=== PATIENT | female | born 1960 | race Caucasian/White ===

== ENCOUNTER 2016-12-03 09:36 | Emergency (ER) | payer SELFPAY ==
[~2016-12-03] VITALS: Ht 167.6 cm; Wt 69.9 kg
[~2016-12-03 09:36] MED LIST: ACHD5005 PO; ALBU17AE23; AMOX-355; CEPH-507 PO; FAMO-119 PO; FAMO20TA5 PO; HYDR1TAB PO; IBP200T; IBUP-1780 PO; LISI10TA2; MECL12.579 PO; METH4TAB PO; NAPR500T PO; ONDA8TAB13 PO; ONDA8TAB9 PO; PRD20T PO; SULF1TAB35 PO; SULF1TAB38 PO; TRAM50TA2 PO
--- OUTSIDE RECORDS SUMMARY | 2016-12-03 09:43 | XMS REPORT | Continuity of Care Document ---
Author Author [facility] Organization [facility] Address Unknown Phone Unavailable Care Team Providers Care Seed Collector Name Role Phone [facility] OF PCP Insurance Providers Payer Name Policy Number Subscriber Name Relationship Self Pay Anupam Ling 18 Self / Same As Patient Advance Directives Directive Response Recorded Date/Time Advance Directives No 01/27/15 4:50pm Health Care Power of Tire Retreader No 01/27/15 4:50pm Organ Donor No 01/27/15 [...] F (97.6 - 99.5) Temperature (Calculated Celsius) 36.17111 degrees C (36.4 - 37.5) Temperature Source Temporal Pulse Rate (adult) 89 bpm (60 - 90) Respiratory Rate 16 bpm (12 - 24) O2 Sat by Pulse Oximetry 99 % (88 - 100) Blood Pressure 146/89 mm Hg Pain Pain Intensity 0 Height (Feet) 5 feet Height (Inches) 7 inches Height (Calculated Centimeters) 170.699199 cm Weight (Pounds) 160 pounds Weight (Calculated Kilograms) 72.473950 kilograms Calculated BMI 25.06 Results Laboratory Results [...] 5-9 01/27/2015 7:00pm 01/27/2015 7:14pm Urine Specific [place] 1.015 * 1.016-1.022 01/27/2015 7:00pm 2014 7:14pm [...] Encounter Location Date/Time Departed Emergency Room Via [facility] 01/27/15 4:15pm Recent Diagnosis
[2016-12-03] MEDS ORDERED: IBUP-1780 (10:23)
[2016-12-03] MEDS ORDERED: HYDR-3812 PO (10:23)
--- NOTE | 2016-12-03 11:16 | ED Lower Extremity ---
General Chief Complaint: Lower Extremity Stated Complaint: FALL/LEFT KNEE PAIN Nursing Triage Note: C/O left knee pain. Fell on 11/21. Saw primary drDavis next day. Decided no x-ray needed. Bruising and swelling. Nursing Sepsis Screen: No Definite Risk Source: patient Exam Limitations: no limitations History of Present Illness Time seen by provider: 11:14 Initial Comments To ER with left anterior knee pain and bruising about the left lower extremity. States that she tripped over a tree root in her driveway 11/21/16. She saw her primary care health the next day and they decided in agreement that since she was ambulatory imaging studies were not needed. There is no swelling and pain at the time. However, today 2 weeks later she has persistent pain over the tibial tuberosity and ecchymosis around the ankle. No pain at the ankle. Onset: just prior to arrival Severity: moderate Pain/Injury Location: left knee Method of Injury: fell Modifying Factors: Worse With Movement Allergies and Home Medications Allergies Coded Allergies: No Known Drug Allergies (Verified , 10/15/08) Home Medications Hydrocodone/Acetaminophen 1 Each Tablet #28 (Reported) Ibuprofen 800 Mg Tablet #90 (Reported) Constitutional: see HPINo chills, No fever EENTM: see HPI Respiratory: no symptoms reported Cardiovascular: no symptoms reported Genitourinary: no symptoms reported Musculoskeletal: no symptoms reported Skin: no symptoms reported Psychiatric/Neurological: No Symptoms Reported Past Dhnjccq-Brqtkr-Mtpsnx Hx Patient Social History Alcohol Use: Denies Use Recreational Drug Use: No Smoking Status: Never a Smoker 2nd Hand Smoke Exposure: No Recent Foreign Travel: No Contact w/Someone Who Travel: No Recent Infectious Disease Expo: No Recent Hopitalizations: Yes ( PREVIOUSLY STATED) Immunizations Up To Date Tetanus Booster (TDap): More than 5yrs Date of Influenza Vaccine: Jul 17, 2012 Seasonal Allergies Seasonal Allergies: No Surgeries HX Surgeries: Yes (HIATAL HERNIA REPAIR) Surgeries: Abdominal, Tubal Ligation Respiratory Hx Respiratory Disorders: No Cardiovascular Hx Cardiac Disorders: Yes (HX HTN) Cardiac Disorders: Hypertension Neurological Hx Neurological Disorders: No Reproductive System : No Hx Reproductive Disorders: No Sexually Transmitted Disease: No EMD SPECIAL EDUCATION TEACHER History: Menopausal Genitourinary Hx Genitourinary Disorders: No Gastrointestinal Hx Gastrointestinal Disorders: Yes Gastrointestinal Disorders: Gastroesophageal Reflux, Hiatal Hernia Musculoskeletal Hx Musculoskeletal Disorders: Yes Musculoskeletal Disorders: Arthritis Endocrine Hx Endocrine Disorders: No HEENT HX ENT Disorders: No Cancer Hx Cancer: No Psychosocial Hx Psychiatric Problems: No Integumentary HX Skin/Integumentary Disorder: No Blood Transfusions Hx Blood Disorders: No Family Medical History Significant Family History: No Pertinent Family Hx Physical Exam Vital Signs Vital Sign - Last 12Hours 12/03/16 10:08 Temp 99.1 Pulse 76 Resp 18 B/P 151/82 Pulse Ox 99 O2 Delivery Room Air Capillary Refill : Less Than 3 Seconds General Appearance: WD/WN no apparent distress HEENT: PERRL/EOMI normal ENT inspection Neck: non-tender full range of motion Respiratory: no respiratory distress no accessory muscle use Gastrointestinal: normal bowel sounds non tender soft Hips: bilateral hip non-tender, bilateral hip normal inspection, bilateral hip normal range of motion Legs: bilateral leg non-tender, bilateral leg normal inspection, bilateral leg normal range of motion Knees: left knee ecchymosis, left knee soft tissue tenderness, left knee swelling Ankles: left ankle ecchymosis Feet: bilateral foot non-tender, bilateral foot normal inspection, bilateral foot normal range of motion Neurologic/Tendon: normal sensation normal motor functions Neurologic/Psychiatric: alert normal mood/affect oriented x 3 Skin: normal color warm/dry Progress/Results/Core Measures Results/Orders My Orders Orders-CHRISTEL CASANOVA APRN Immobilizer Knee St 19 Inch (12/03/16 11:32) Vital Signs/I&O Vital Sign - Last 12Hours 12/03/16 10:08 Temp 99.1 Pulse 76 Resp 18 B/P 151/82 Pulse Ox 99 O2 Delivery Room Air Blood Pressure Mean: 105 Departure Impression Impression: Primary Impression: Acute internal derangement of left knee Disposition: 01 HOME, SELF-CARE Condition: Stable Departure-Patient Inst. Decision time for Depature: 11:20 Referrals: CIRO MEYER MD [facility] (PCP/Family) Primary Care Physician ANDREW FLOREZ MD,ARNIE WALKER,CHUCK DENISE MD,DERIC Brand MD Patient Instructions: NO INSTRUCTIONS GIVEN Add. Discharge Instructions: 1. knee immobilizer for the next week 2. Call an orthopedist of your choosing for follow up in 2 weeks 3. Ice pack as directed 4. Take 81mg aspirin daily All discharge instructions reviewed with patient and/or family. Voiced understanding. CHRISTEL CASANOVA APRN Dec 03, 2016 11:15 understanding. CHRISTEL CASANOVA APRN Dec 03, 2016 11:15
--- NOTE | 2016-12-03 11:32 | Diagnostic Imaging Report ---
KNEE, LEFT, 3 VIEWS COMPARISON: None available. INDICATION: Left knee pain after fall approximately two weeks ago. Pain not improving. TECHNIQUE: AP, oblique and lateral views of the left knee. FINDINGS: There is no acute or healing fracture. No malalignment. Suprapatellar enthesopathy is present. Joint spaces are well-maintained. No knee joint effusion. IMPRESSION: No acute osseous abnormality about the left knee. Dictated by: Dictated on workstation # [id number]
[2016-12-03 11:58] VITALS: BP 148/80
== END 2016-12-03 11:58 | disposition home or self-care (01) ==
LOC: EDUNIT# 09:36 → ER 09:38
DX: M23.92 Unspecified internal derangement of left knee (principal); I10 Essential (primary) hypertension
CPT/HCPCS: 73562; 99283

== ENCOUNTER 2016-12-09 09:00 | Outpatient (RCR) | payer SELFPAY ==
--- OUTSIDE RECORDS SUMMARY | 2016-11-11 09:52 | XMS REPORT | Continuity of Care Document ---
Author Author [facility] Organization [facility] Address Unknown Phone Unavailable Care Team Providers Care Chief Client Officer Name Role Phone [facility] OF PCP Insurance Providers Payer Name Policy Number Subscriber Name Relationship Self Pay Anupam Ling 18 Self / Same As Patient Advance Directives Directive Response Recorded Date/Time Advance Directives No 01/27/15 4:50pm Health Care Power of Scientific Investigator No 01/27/15 4:50pm Organ Donor No 01/27/15 4:50pm Resuscitation Status Full Code 01/27/15 4:50pm Problems Medical Problems Problem Onset Date Status Diarrhea Unknown Active Nausea and vomiting Unknown Active Diarrhea Unknown Active Medications Medication Dose Route Sig Days/Qty Instructions Order Date Discontinued Date Status Lisinopril 02/08/10 01/27/15 Discontinued Albuterol 02/08/10 12/17/12 Discontinued Meclizine Hcl (Antivert) 1 - 2 Each PO FOUR TIMES DAILY 30 Qty 01/27/15 Discontinued Ondansetron HCl 8 Mg PO EVERY 6 HOURS 10 Qty 12/17/12 12/27/12 Discontinued Acetaminophen/Hydrocodone Bitart 1 - 2 Each PO Q 4 HOURS PRN PAIN 14 Qty 12/27/12 01/27/15 Discontinued Trimethoprim/Sulfamethoxazole 1 Ea PO TWICE A DAY 20 Qty FOR INFECTION 01/27/15 Discontinued Methylprednisolone 0 PO DIRECTED 1 Qty 01/01/13 01/27/15 Discontinued Ondansetron 8 Mg PO EVERY 6 HOURS PRN NAUSEA/VOMITING 10 Qty 01/27/15 Active Famotidine (Pepcid) 1 Each PO TWICE A DAY 30 Qty 01/27/15 Active Social History Social History Problem Response Recorded Date/Time Alcohol Use Denies Use 01/27/2015 4:50pm Recreational Drug Use No 01/27/2015 4:50pm Recent Foreign Travel No 01/27/2015 4:50pm Recent Infectious Disease Exposure No 01/27/2015 4:50pm Hospitalization with Isolation Denies 01/27/2015 4:50pm Sexually Transmitted Disease No 01/27/2015 4:50pm Smoking Status Never a Smoker 01/27/2015 4:50pm Query Response Start Date Stop Date Smoking Status Never a Smoker Hospital Discharge Instructions No hospital discharge instructions. Plan of Care No plan of care. Functional Status No functional status results. Allergies, Adverse Reactions, Alerts Allergen Type Severity Reaction Status Last Updated No Known Drug Allergies Active 10/15/08 Immunizations Name Given Type Date of Influenza Vaccine 07/17/12 Historical Tetanus Booster (TDap) More than 5yrs Historical Vital Signs Acute Vital Signs Vital Response Date/Time Temperature (Fahrenheit) 97.9 degrees F (97.6 - 99.5) Temperature (Calculated Celsius) 36.34810 degrees C (36.4 - 37.5) Temperature Source Temporal Pulse Rate (adult) 89 bpm (60 - 90) Respiratory Rate 16 bpm (12 - 24) O2 Sat by Pulse Oximetry 99 % (88 - 100) Blood Pressure 146/89 mm Hg Pain Pain Intensity 0 Height (Feet) 5 feet Height (Inches) 7 inches Height (Calculated Centimeters) 170.515410 cm Weight (Pounds) 160 pounds Weight (Calculated Kilograms) 72.806197 kilograms Calculated BMI 25.06 Results Laboratory Results Test Name Result Units Flags Reference Collection Date/Time Result Date/ Time Comments White Blood Count 5.7 10^3/uL 4.3-11.0 01/27/2015 5:56pm 01/27/2015 6: 08pm Red Blood Count 4.89 10^6/uL 4.35-5.85 01/27/2015 5:56pm 01/27/2015 6: 08pm Hemoglobin 14.8 G/DL 11.5-16.0 01/27/2015 5:56pm 01/27/2015 6:08pm Hematocrit 45 % 35-52 01/27/2015 5:56pm 01/27/2015 6:08pm Mean Corpuscular Volume 92 FL 80-99 01/27/2015 5:56pm 01/27/2015 6: 08pm Mean Corpuscular Hemoglobin 30 PG 25-34 01/27/2015 5:56pm 01/27/2015 6: 08pm Mean Corpuscular Hemoglobin Concent 33 G/DL 32-36 01/27/2015 5:56pm 6:08pm Red Cell Distribution Width 13.2 % 10.0-14.5 01/27/2015 5:pm 2014 6:08pm Platelet Count 198 10^3/uL 130-400 01/27/2015 5:56pm 01/27/2015 6:08pm Mean Platelet Volume 10.7 FL H 7.4-10.4 01/27/2015 5:pm 01/27/2015 6: 08pm Neutrophils (%) (Auto) 90 % H 42-75 01/27/2015 5:56pm 01/27/2015 6:08pm Lymphocytes (%) (Auto) 5 % L 12-44 01/27/2015 5:pm 01/27/2015 6:08pm Monocytes (%) (Auto) 4 % 0-12 01/27/2015 5:pm 01/27/2015 6:08pm Eosinophils (%) (Auto) 0 % 0-10 01/27/2015 5:pm 01/27/2015 6:08pm Basophils (%) (Auto) 0 % 0-10 01/27/2015 5:pm 01/27/2015 6:08pm Neutrophils # (Auto) 5.2 X 10^3 1.8-7.8 01/27/2015 5:pm 01/27/2015 6: 08pm Lymphocytes # (Auto) 0.3 X 10^3 L 1.0-4.0 01/27/2015 5:pm 01/27/2015 6: 08pm Monocytes # (Auto) 0.2 X 10^3 0.0-1.0 01/27/2015 5:56pm 01/27/2015 6: 08pm Eosinophils # (Auto) 0.0 10^3/uL 0.0-0.3 01/27/2015 5:56pm 01/27/2015 6 :08pm Basophils # (Auto) 0.0 10^3/uL 0.0-0.1 01/27/2015 5:56pm 01/27/2015 6: 08pm Neutrophils % (Manual) 80 % 01/27/2015 5:56pm 01/27/2015 6:26pm Band Neutrophils 11 % 01/27/2015 5:56pm 01/27/2015 6:26pm Lymphocytes % (Manual) 3 % 01/27/2015 5:56pm 01/27/2015 6:26pm Monocytes % (Manual) 3 % 01/27/2015 5:56pm 01/27/2015 6:26pm Eosinophils % (Manual) 1 % 01/27/2015 5:56pm 01/27/2015 6:26pm Basophils % (Manual) 0 % 01/27/2015 5:56pm 01/27/2015 6:26pm Atypical Lymphocytes 2 % 01/27/2015 5:56pm 01/27/2015 6:26pm Blood Morphology Comment NORMAL 01/27/2015 5:56pm 01/27/2015 6: 26pm Urine Color YELLOW 01/27/2015 7:00pm 01/27/2015 7:14pm Urine Clarity CLEAR 01/27/2015 7:00pm 01/27/2015 7:14pm Urine pH 6 5-9 01/27/2015 7:00pm 01/27/2015 7:14pm Urine Specific [place] 1.015 * 1.016-1.022 01/27/2015 7:00pm 2014 7:14pm Urine Protein 1+ * NEGATIVE 01/27/2015 7:00pm 01/27/2015 7:14pm Urine Glucose (UA) NEGATIVE NEGATIVE 01/27/2015 7:00pm 01/27/2015 7: 14pm Urine RBC (Auto) 1+ * NEGATIVE 01/27/2015 7:00pm 01/27/2015 7:14pm Urine Ketones 2+ * NEGATIVE 01/27/2015 7:00pm 01/27/2015 7:14pm Urine Nitrite NEGATIVE NEGATIVE 01/27/2015 7:00pm 01/27/2015 7:14pm Urine Bilirubin NEGATIVE NEGATIVE 01/27/2015 7:00pm 01/27/2015 7: 14pm Urine Urobilinogen NORMAL MG/DL NORMAL 01/27/2015 7:00pm 01/27/2015 7: 14pm Urine Leukocyte Esterase 1+ * NEGATIVE 01/27/2015 7:00pm 01/27/2015 7: 14pm Urine RBC 0-2 /HPF 01/27/2015 7:00pm 01/27/2015 7:14pm Urine WBC 2-5 /HPF 01/27/2015 7:00pm 01/27/2015 7:14pm Urine Bacteria TRACE /HPF 01/27/2015 7:00pm 01/27/2015 7:14pm Urine Squamous Epithelial Cells 10-25 /HPF * 01/27/2015 7:00pm 2014 7:14pm Urine Crystals NONE /LPF 01/27/2015 7:00pm 01/27/2015 7:14pm Urine Casts NONE /LPF 01/27/2015 7:00pm 01/27/2015 7:14pm Urine Mucus NEGATIVE /LPF 01/27/2015 7:00pm 01/27/2015 7:14pm Urine Culture Indicated NO 01/27/2015 7:00pm 01/27/2015 7:14pm Sodium Level 138 MMOL/L 135-145 01/27/2015 5:5601/27/2015 6:28pm Potassium Level 3.8 MMOL/L 3.6-5.0 01/27/2015 5:5601/27/2015 6:28pm Chloride Level 106 MMOL/L 98-107 01/27/2015 5:5601/27/2015 6:28pm Carbon Dioxide Level 22 MMOL/L 21-32 01/27/2015 5:5601/27/2015 6: 28pm Blood Urea Nitrogen 9 MG/DL 7-18 01/27/2015 5:5601/27/2015 6:28pm Creatinine 0.82 MG/DL 0.60-1.30 01/27/2015 5:5601/27/2015 6:28pm BUN/Creatinine Ratio 11 01/27/2015 5:5601/27/2015 6:28pm Estimat Glomerular Filtration Rate > 60 01/27/2015 5:562014 6:28pm GFR INTERPRETIVE DATA UNITS FOR ESTIMATED GFR (eGFR): mL/min/1.73 M2 REFERENCE RANGE FOR ESTIMATED GFR (eGFR) eGFR NORMAL eGFR >60 MODERATELY DECREASED eGFR 30-59 SEVERLY DECREASED eGFR 15-29 KIDNEY FAILURE <15 (OR DIALYSIS) Glucose Level 121 MG/DL H 70-105 01/27/2015 5:01/27/2015 6:28pm Calcium Level 9.3 MG/DL 8.5-10.1 01/27/2015 5:01/27/2015 6:28pm Total Bilirubin 1.5 MG/DL H 0.1-1.0 01/27/2015 5:01/27/2015 6:28pm Alkaline Phosphatase 114 U/L 40-136 01/27/2015 5:pm 01/27/2015 6: 28pm Aspartate Amino Transf (AST/SGOT) 15 U/L 5-34 01/27/2015 5:2014 6:28pm Alanine Aminotransferase (ALT/SGPT) < 6 U/L 0-55 01/27/2015 5: 6:28pm Total Protein 7.1 G/DL 6.4-8.2 01/27/2015 5:01/27/2015 6:28pm Albumin 3.9 G/DL 3.2-4.5 01/27/2015 5:01/27/2015 6:28pm Lipase 14 U/L 8-78 01/27/2015 5:pm 01/27/2015 6:28pm Procedures No known history of procedures. Encounters Encounter Location Date/Time Departed Emergency Room Via [facility] 01/27/15 4:15pm Recent Diagnosis
[~2016-12-09 09:00] MED LIST changes: +HYDR-3812 PO; +IBUP-1780
[2016-12-22] MEDS ORDERED: METH4TAB PO (11:08)
== END 2016-12-29 14:47 | disposition home or self-care (01) ==
PROVIDERS: ATTEND Nurse Practitioner Community Health
DX: M25.561 Pain in right knee (principal)

== ENCOUNTER 2016-12-22 09:49 | Emergency (ER) | payer SELFPAY ==
[~2016-12-22] VITALS: Ht 170.2 cm; Wt 65.8 kg
--- OUTSIDE RECORDS SUMMARY | 2016-12-22 09:56 | XMS REPORT | Continuity of Care Document ---
Author Author [facility] Organization [facility] Address Unknown Phone Unavailable Care Team Providers Care Mri Tech Name Role Phone [facility] OF PCP Insurance Providers Payer Name Policy Number Subscriber Name Relationship Self Pay Anupam Ling 18 Self / Same As Patient Advance Directives Directive Response Recorded Date/Time Advance Directives No 01/27/15 4:50pm Health Care Power of Recreational Vehicle Resort Manager No 01/27/15 4:50pm Organ Donor No 01/27/15 [...] F (97.6 - 99.5) Temperature (Calculated Celsius) 36.64464 degrees C (36.4 - 37.5) Temperature Source Temporal Pulse Rate (adult) 89 bpm (60 - 90) Respiratory Rate 16 bpm (12 - 24) O2 Sat by Pulse Oximetry 99 % (88 - 100) Blood Pressure 146/89 mm Hg Pain Pain Intensity 0 Height (Feet) 5 feet Height (Inches) 7 inches Height (Calculated Centimeters) 170.390949 cm Weight (Pounds) 160 pounds Weight (Calculated Kilograms) 72.022076 kilograms Calculated BMI 25.06 Results Laboratory Results [...] 5-9 01/27/2015 7:00pm 01/27/2015 7:14pm Urine Specific [place] 1.015 * 1.016-1.022 01/27/2015 7:00pm 2014 7:14pm [...] Encounter Location Date/Time Departed Emergency Room Via [facility] 01/27/15 4:15pm Recent Diagnosis
--- NOTE | 2016-12-22 10:27 | ED Hip Pain/Injury ---
General Chief Complaint: Hip/Pelvic Problems Stated Complaint: RIGHT HIP/LEG PAIN Nursing Triage Note: PT CO OF R HIP, PELVIC PAIN INTO BUTTOCKS Source: patient History of Present Illness Time seen by provider: 10:10 Initial Comments PT ARRIVES VIA POV FROM HOME--DROVE SELF HERE C/O PAIN TO RIGHT GROIN, HIP AND BUTTOCK AREA SINCE YESTERDAY NO RECENT INJURY--FELL APPROXIMATELY A MONTH AGO AND INJURED LEFT KNEE, BUT HAS NOT HAD ANY FURTHER PROBLEMS WITH LEFT KNEE NO PRIOR PROBLEMS WITH RIGHT HIP BUT STATES SHE "HAS ARTHRITIS ALL OVER" NO PARESTHESIAS OR MOTOR DEFICITS NO PROBLEMS WITH BOWEL OR BLADDER FUNCTION PAIN IS WORST WITH WALKING TAKES HYDROCODONE AT BEDTIME AND IBUPROFEN DURING THE DAY FOR CHRONIC GENERALIZED PAIN, BUT HAS NOT TAKEN ANYTHING FOR PAIN TODAY. Other PCP: [facility] METER READER INSPECTOR BILLIE CERVANTES Allergies and Home Medications Allergies Coded Allergies: No Known Drug Allergies (Verified , 10/15/08) Home Medications Hydrocodone/Acetaminophen 1 Each Tablet #28 (Reported) Ibuprofen 800 Mg Tablet #90 (Reported) Methylprednisolone 4 Mg Tab.ds.pk #1 4 MG PO UD Prescribed by: MARYLIN BROCK on 12/22/16 1108 Constitutional: no symptoms reported Respiratory: no symptoms reported Cardiovascular: no symptoms reported Genitourinary: no symptoms reported Musculoskeletal: see HPI Skin: no symptoms reported Psychiatric/Neurological: No Symptoms Reported Past Oacbpmg-Fmqesd-Xmlqtf Hx Patient Social History Alcohol Use: Denies Use Recreational Drug Use: No Smoking Status: Never a Smoker 2nd Hand Smoke Exposure: No Recent Foreign Travel: No Contact w/Someone Who Travel: No Recent Infectious Disease Expo: No Recent Hopitalizations: Yes ( PREVIOUSLY STATED) Immunizations Up To Date Tetanus Booster (TDap): More than 5yrs Date of Influenza Vaccine: Jul 17, 2012 Seasonal Allergies Seasonal Allergies: No Surgeries HX Surgeries: Yes (HIATAL HERNIA REPAIR) Surgeries: Abdominal, Tubal Ligation Respiratory Hx Respiratory Disorders: No Cardiovascular Hx Cardiac Disorders: Yes (HX HTN) Cardiac Disorders: Hypertension Neurological Hx Neurological Disorders: No Reproductive System Hx Reproductive Disorders: No Sexually 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, Menopausal Genitourinary Hx Genitourinary Disorders: No Gastrointestinal Hx Gastrointestinal Disorders: Yes Gastrointestinal Disorders: Gastroesophageal Reflux, Hiatal Hernia Musculoskeletal Hx Musculoskeletal Disorders: Yes Musculoskeletal Disorders: Arthritis, Scoliosis Endocrine Hx Endocrine Disorders: No HEENT HX ENT Disorders: No Cancer Hx Cancer: No Psychosocial Hx Psychiatric Problems: No Integumentary HX Skin/Integumentary Disorder: No Blood Transfusions Hx Blood Disorders: No Family Medical History Significant Family History: No Pertinent Family Hx Physical Exam Vital Signs Vital Sign - Last 12Hours 12/22/16 10:05 Temp 98.2 Pulse 91 Resp 18 B/P 154/87 Pulse Ox 98 Capillary Refill : Less Than 3 Seconds General Appearance: No Apparent Distress WD/WN Neck: Full Range of Motion Normal Inspection Non Tender Supple Cardiovascular: Regular Rate, Rhythm No Edema No Murmur Normal Peripheral Pulses Respiratory: Normal Breath Sounds No Accessory Muscle Use No Respiratory Distress Gastrointestinal: Non Tender Soft Back: Normal Inspection No CVA Tenderness No Vertebral Tenderness Extremity: Normal Capillary Refill Normal Range of Motion No Calf Tenderness No Pedal Edema Other (TENDERNESS TO RIGHT GROIN, HIP AND BUTTOCK. HAS NEAR-FULL ROM BUT LIMITED BY PAIN. MOTOR/SENSORY / VASCULAR INTACT. NEGATIVE STRAIGHT LEG RAISING BIALTERALLY) Neurologic/Psychiatric: Alert Oriented x3 No Motor/Sensory Deficits Normal Mood/Affect half backer II-XII Norm as Tested Skin: Normal Color Warm/DryNo Rash Progress/Results/Core Measures Results/Orders My Orders Orders-DELMYMARYLIN K DO Pelvis (12/22/16 10:18) Hip, Right, 2 Views (12/22/16 10:18) Walker (12/22/16 11:08) Methylprednisolone Sod Succ (Solu-Medrol (12/22/16 11:15) Vital Signs/I&O Vital Sign - Last 12Hours 12/22/16 12/22/16 10:05 11:19 Temp 98.2 98.2 Pulse 91 91 Resp 18 18 B/P 154/87 Pulse Ox 98 98 Blood Pressure Mean: 109 Diagnostic Imaging Comments XRAYS PELVIS AND RIGHT HIP--MODERATE OA, OTHERWISE NO ACUTE PROCESS--PER RADIOLOGIST REPORT @ 1104 Reviewed: Reviewed by Me Departure Impression Impression: Primary Impression: Right hip pain Disposition: 01 HOME, SELF-CARE Condition: Improved Departure-Patient Inst. Referrals: [facility] (PCP/Family) Primary Care Physician Patient Instructions: Going Up and Down Curbs or Stairs With a Walker or Crutches, Hip Pain (DC), Hip Pain in Older People Add. Discharge Instructions: ALTERNATE ICE AND HEAT TO AREA AT 20 MINUTE INTERVALS TAKE YOUR HYDROCODONE EVERY 4-6 HOURS HOLD IBUPROFEN WHILE TAKING PREDNISONE FOLLOW UP WITH [facility] THIS WEEK FOR FURTHER CARE All discharge instructions reviewed with patient and/or family. Voiced understanding. Scripts Methylprednisolone (Medrol)4 Mg Tab.ds.pk4 Mg PO UD #1 PKG Prov:MARYLIN BROCK DO 12/22/16 Work/School Note: Work Release Form Date Seen in the Emergency Department: Dec 22, 2016 Return to Work: Dec 27, 2016 MARYLIN BROCK DO Dec 22, 2016 10:27
--- NOTE | 2016-12-22 10:41 | Diagnostic Imaging Report ---
INDICATION: Right hip pain. COMPARISON: Dedicated right hip exam from same day FINDINGS: A single AP view of the pelvis was performed. There is no radiographic evidence of acute fracture or dislocation. Pubic symphysis is within normal limits. SI joints are symmetric. Proximal femurs are intact, bilaterally. The femoro-acetabular joint spaces appear maintained on this single frontal view. Remainder of the bony pelvis is intact as well. No unexpected radiopaque foreign bodies are seen. Included small bowel loops are nondistended. Moderate degenerative changes of the bilateral hips are noted. IMPRESSION: 1. No radiographic evidence of acute fracture or dislocation of the bony pelvis. Dictated by: Dictated on workstation # [id number]
--- NOTE | 2016-12-22 10:43 | Diagnostic Imaging Report ---
INDICATION: Right hip pain. COMPARISON: None. FINDINGS: 2 views of the right hip show no fractures, dislocations, or other acute bony abnormalities identified. Moderate degenerative changes are noted. Otherwise, joint spaces are intact. The soft tissues appear unremarkable. No radiopaque foreign bodies are identified. IMPRESSION: 1. No evidence of acute fracture or dislocation right hip. 2. Moderate osteoarthritis of the right hip. Dictated by: Dictated on workstation # [id number]
[2016-12-22] MEDS ORDERED: METH4TAB PO (11:08)
[2016-12-22] MEDS ORDERED: methylPREDNISolone 125 MG (Solu-MEDROL) VIAL IM ONE (11:15)
[2016-12-22 11:19] VITALS: BP 154/87
== END 2016-12-22 11:20 | disposition home or self-care (01) ==
LOC: EDUNIT# 09:49 → ER 09:51
DX: M16.11 Unilateral primary osteoarthritis, right hip (principal); I10 Essential (primary) hypertension
CPT/HCPCS: 72170; 73502; 96372; 99283

== ENCOUNTER 2017-01-29 01:47 | Emergency (ER) | payer SELFPAY ==
[~2017-01-29] VITALS: Ht 170.2 cm; Wt 63.5 kg
--- NOTE | 2017-01-29 02:59 | ED EENT ---
History of Present Illness General Chief Complaint: Ear Problems Stated Complaint: BUG IN RT EAR Nursing Triage Note: Pt reports she was asleep when a bug flew in her R ear. Pt reports she is unsure if bug came out of ear or not. Pt now c/o pressure to R ear. Source: patient Exam Limitations: no limitations History of Present Illness Time seen by provider: 02:30 Initial Comments Here with report of feeling like something flew into her right ear. She feels pressure to the right ear currently. She swatted at the bug but does not feel like it came out. Denies other concerns. Timing/Duration: abrupt Location: ear (R) Prearrival Treatment: no prearrival treatment Associated Symptoms: No ear drainage, No facial pain/swelling, No fever Allergies and Home Medications Allergies Coded Allergies: No Known Drug Allergies (Verified , 10/15/08) Home Medications Hydrocodone/Acetaminophen 1 Each Tablet, 1 TAB PO HS, #28 (Reported) Review of Systems Constitutional: see HPI, No chills, No fever Ears: See HPI, Pain, Denies Purulent Discharge Respiratory: no symptoms reported Cardiovascular: no symptoms reported Past Cfzlfwd-Hzmrim-Cszapz Hx Patient Social History Alcohol Use: Denies Use Recreational Drug Use: No Smoking Status: Never a Smoker 2nd Hand Smoke Exposure: No Recent Foreign Travel: No Contact w/Someone Who Travel: No Recent Infectious Disease Expo: No Recent Hopitalizations: No ( PREVIOUSLY STATED) Immunizations Up To Date Tetanus Booster (TDap): More than 5yrs Date of Influenza Vaccine: Jul 17, 2012 Seasonal Allergies Seasonal Allergies: No Surgeries HX Surgeries: Yes (HIATAL HERNIA REPAIR) Surgeries: Abdominal, Tubal Ligation Respiratory Hx Respiratory Disorders: No Cardiovascular Hx Cardiac Disorders: Yes Cardiac Disorders: Hypertension Neurological Hx Neurological Disorders: No Reproductive System Hx Reproductive Disorders: No Sexually 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, Menopausal Genitourinary Hx Genitourinary Disorders: No Gastrointestinal Hx Gastrointestinal Disorders: Yes Gastrointestinal Disorders: Gastroesophageal Reflux, Hiatal Hernia Musculoskeletal Hx Musculoskeletal Disorders: Yes Musculoskeletal Disorders: Arthritis, Scoliosis Endocrine Hx Endocrine Disorders: No HEENT HX ENT Disorders: No Cancer Hx Cancer: No Psychosocial Hx Psychiatric Problems: No Integumentary HX Skin/Integumentary Disorder: No Blood Transfusions Hx Blood Disorders: No Reviewed Nursing Assessment Reviewed/Agree w Nursing PMH: Yes Family Medical History Significant Family History: No Pertinent Family Hx Physical Exam Vital Signs Vital Sign - Last 12Hours 01/29/17 02:19 Temp 97.8 Pulse 75 Resp 18 B/P (MAP) 171/94 Pulse Ox 99 O2 Delivery Room Air General Appearance: WD/WN, no apparent distress Ears: right ear other (moderate cerumen interfering with exam of TM.), left ear TM normal, bilateral ear auricle normal, bilateral ear canal normal Cardiovascular: regular rate, rhythm, no murmur Respiratory: lungs clear, normal breath sounds Neurologic/Psychiatric: alert, oriented x 3 Progress/Results/Core Measures Results/Orders Vital Signs/I&O Vital Sign - Last 12Hours 01/29/17 02:19 Temp 97.8 Pulse 75 Resp 18 B/P (MAP) 171/94 Pulse Ox 99 O2 Delivery Room Air Blood Pressure Mean: 119 Progress Note : Progress Note Seen and evaluated. Right ear canal flushed with copious amounts of warm water and hydrogen peroxide 50/50 mix. Large cerumen ball removed with flush. Small amount of cerumen removed with ear pick. No remaining foreign body or cerumen left in canal and patient states she feels much better. Discharged home with return precautions. Patient verbalize understanding instructions and agreement with plan. Departure Impression Impression: Primary Impression: Foreign body in ear Qualified Codes: T16.1XXA - Foreign body in right ear, initial encounter Additional Impression: Impacted cerumen Qualified Codes: H61.21 - Impacted cerumen, right ear Disposition: 01 HOME, SELF-CARE Condition: Improved Departure-Patient Inst. Referrals: [facility] (PCP/Family) Primary Care Physician Patient Instructions: Ear Wax Impaction (DC) Add. Discharge Instructions: All discharge instructions reviewed with patient and/or family. Voiced understanding. You may take ibuprofen or Tylenol as needed for pain. Follow-up with your DrDavis in a few days for recheck. Return for worse pain, swelling, bleeding or discharge from the ear or other concerns as needed. TYRON BISWAS MD Jan 29, 2017 02:59
[2017-01-29 03:11] VITALS: BP 171/94
== END 2017-01-29 03:11 | disposition home or self-care (01) ==
LOC: EDUNIT# 01:47 → ER 01:50
DX: T16.1XXA Foreign body in right ear, initial encounter (principal); H61.21 Impacted cerumen, right ear; I10 Essential (primary) hypertension
CPT/HCPCS: 99282

== ENCOUNTER 2017-10-19 21:08 | Emergency (ER) | payer SELFPAY ==
[~2017-10-19] VITALS: Ht 167.6 cm; Wt 65.8 kg
[~2017-10-19 21:08] MED LIST changes: -HYDR-3812 PO; +NAPR-1071 PO; -NAPR500T PO
--- OUTSIDE RECORDS SUMMARY | 2017-10-19 21:14 | XMS REPORT ---
Author Author BILLIE CERVANTES [facility] Address [address] [place] [address] Care Team Providers Care Managed Services Consultant Name Role Phone BILLIE CERVANTES Unavailable PROBLEMS Type Condition ICD9-CM Code [id number] Code Onset Dates Condition Status SNOMED Code Problem Pain in soft tissues of limb 729.5 Active 10122238 Problem Osteoarthritis, hip, bilateral M16.0 Active 766468554 Problem Intestinal infection due to other organism, NEC 008.8 Active 29650541 Problem Sciatica of right side M54.31 Active 87333575 Problem Osteoarthritis of both knees, unspecified osteoarthritis type M17.0 Active 431330780 Problem Other chronic pain G89.29 Active 99620384 Problem Breast cancer screening Z12.39 Active 985171964 Problem Scoliosis, unspecified scoliosis type, unspecified spinal region M41.9 Active 170599899 Problem Arthralgia, unspecified joint M25.50 Active 24151836 Problem 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 Active 01615712 Problem Special screening for malignant neoplasms, colon V76.51 Active 262517890 Problem Other specified counseling V65.49 Active 987495344 Problem Special screening examination, human papillomavirus [HPV] V73.81 Active 476768628 Problem Screening for malignant neoplasm of the cervix V76.2 Active 286883303 Problem Routine gynecological examination V72.31 Active 269780112653630 Problem Unspecified breast screening V76.10 Active 918117336 Problem Health examination of defined subpopulation V70.5 Active 760138092 ALLERGIES No Information SOCIAL HISTORY Never Assessed PLAN OF CARE VITAL SIGNS MEDICATIONS No Known Medications RESULTS No Results PROCEDURES No Known procedures IMMUNIZATIONS No Known Immunizations MEDICAL (GENERAL) HISTORY Type Description Date Medical History scoliosis Surgical History hernia repair 2007 Hospitalization History childbirth x 3
--- OUTSIDE RECORDS SUMMARY | 2017-10-19 21:14 | XMS REPORT ---
Author Author BILLIE CERVANTES [facility] Address [address] [place] [address] Care Team Providers Care Vp Director Of Creative Strategy Name Role Phone BILLIE CERVANTES Unavailable PROBLEMS Type Condition ICD9-CM Code [id number] Code Onset Dates Condition Status SNOMED Code Problem Pain in soft tissues of limb 729.5 Active 51185606 Problem Osteoarthritis, hip, bilateral M16.0 Active 381403480 Problem Intestinal infection due to other organism, NEC 008.8 Active 76607012 Problem Sciatica of right side M54.31 Active 97336599 Problem Osteoarthritis of both knees, unspecified osteoarthritis type M17.0 Active 754727883 Problem Other chronic pain G89.29 Active 59367679 Problem Breast cancer screening Z12.39 Active 280918866 Problem Scoliosis, unspecified scoliosis type, unspecified spinal region M41.9 Active 439721594 Problem Arthralgia, unspecified joint M25.50 Active 82740497 Problem 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 Active 57251099 Problem Special screening for malignant neoplasms, colon V76.51 Active 163162896 Problem Other specified counseling V65.49 Active 263976176 Problem Special screening examination, human papillomavirus [HPV] V73.81 Active 450793002 Problem Screening for malignant neoplasm of the cervix V76.2 Active 913798063 Problem Routine gynecological examination V72.31 Active 162258840577205 Problem Unspecified breast screening V76.10 Active 639198093 Problem Health examination of defined subpopulation V70.5 Active 420035349 ALLERGIES Unknown Allergies SOCIAL HISTORY No smoking Hx information available PLAN OF CARE VITAL SIGNS MEDICATIONS Unknown Medications RESULTS No Results PROCEDURES No Known procedures IMMUNIZATIONS No Known Immunizations
--- OUTSIDE RECORDS SUMMARY | 2017-10-19 21:14 | XMS REPORT ---
Author Author BILLIE CERVANTES [facility] Address [address] [place] [address] Care Team Providers Care Healthcare Technician Name Role Phone BILLIE CERVANTES Unavailable PROBLEMS Type Condition ICD9-CM Code [id number]-LH Code Onset Dates Condition Status SNOMED Code Problem Screening for malignant neoplasm of the cervix V76.2 Active 273132463 Problem Osteoarthritis, hip, bilateral M16.0 Active 390160553 Problem Intestinal infection due to other organism, NEC 008.8 Active 81540203 Problem Sciatica of right side M54.31 Active 32138358 Problem Osteoarthritis of both knees, unspecified osteoarthritis type M17.0 Active 471962352 Problem Arthralgia, unspecified joint M25.50 Active 73877327 Problem Breast cancer screening Z12.39 Active 168843984 Problem Scoliosis, unspecified scoliosis type, unspecified spinal region M41.9 Active 733636183 Problem Other chronic pain G89.29 Active 88584351 Problem Health examination of defined subpopulation V70.5 Active 888767754 Problem Pain in soft tissues of limb 729.5 Active 37602830 Problem Routine gynecological examination V72.31 Active 842359017962604 Problem Special screening for malignant neoplasms, colon V76.51 Active 588208172 Problem Special screening examination, human papillomavirus [HPV] V73.81 Active 794786656 Problem Other specified counseling V65.49 Active 586404309 Problem Unspecified breast screening V76.10 Active 628500274 Problem 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 Active 39578689 ALLERGIES Unknown Allergies SOCIAL HISTORY No smoking Hx information available PLAN OF CARE VITAL SIGNS MEDICATIONS Unknown Medications RESULTS Name Result Date Reference Range LIPID PANEL 2016-10-11 Cholesterol, Total 204 100-199 Triglycerides 143 0-149 HDL Cholesterol 66 >39 VLDL Cholesterol [place] 29 5-40 LDL Cholesterol Calc 109 0-99 Comment: CMP 2016-10-11 Glucose, Serum 73 65-99 BUN 15 6-24 Creatinine, Serum 0.89 0.57-1.00 eGFR If NonAfricn Am 73 >59 eGFR If Africn Am 84 >59 BUN/Creatinine Ratio 17 9-23 Sodium, Serum 144 134-144 Potassium, Serum 3.9 3.5-5.2 Chloride, Serum 105 96-106 Carbon Dioxide, Total 24 18-29 Calcium, Serum 8.7 8.7-10.2 Protein, Total, Serum 5.7 6.0-8.5 Albumin, Serum 3.5 3.5-5.5 Globulin, Total 2.2 1.5-4.5 A/G Ratio 1.6 1.1-2.5 Bilirubin, Total 0.2 0.0-1.2 Alkaline Phosphatase, S 107 39-117 AST (SGOT) 14 0-40 ALT (SGPT) 6 0-32 PROCEDURES Procedure Date Ordered Related Diagnosis Body Site LIPID PANEL Oct 11, 2016 COMPREHEN METABOLIC PANEL Oct 11, 2016 VENIPUNCT, ROUTINE* Oct 11, 2016 IMMUNIZATIONS No Known Immunizations
--- OUTSIDE RECORDS SUMMARY | 2017-10-19 21:15 | XMS REPORT ---
Author Author BILLIE CERVANTES [facility] Address [address] [place] [address] Care Team Providers Care Education Administrator Name Role Phone BILLIE CERVANTES Unavailable PROBLEMS Type Condition ICD9-CM Code [id number] Code Onset Dates Condition Status SNOMED Code Problem Pain in soft tissues of limb 729.5 Active 56034884 Problem Osteoarthritis, hip, bilateral M16.0 Active 499467667 Problem Intestinal infection due to other organism, NEC 008.8 Active 91342615 Problem Sciatica of right side M54.31 Active 40372910 Problem Osteoarthritis of both knees, unspecified osteoarthritis type M17.0 Active 690987066 Problem Other chronic pain G89.29 Active 84417285 Problem Breast cancer screening Z12.39 Active 737702517 Problem Scoliosis, unspecified scoliosis type, unspecified spinal region M41.9 Active 975810252 Problem Arthralgia, unspecified joint M25.50 Active 62217234 Problem 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 Active 31708058 Problem Special screening for malignant neoplasms, colon V76.51 Active 736096584 Problem Other specified counseling V65.49 Active 119545777 Problem Special screening examination, human papillomavirus [HPV] V73.81 Active 189319802 Problem Screening for malignant neoplasm of the cervix V76.2 Active 973523203 Problem Routine gynecological examination V72.31 Active 384890515157687 Problem Unspecified breast screening V76.10 Active 445767779 Problem Health examination of defined subpopulation V70.5 Active 411780991 ALLERGIES Substance Reaction Event Type Date Status Tramadol HCl feels wierd Drug Allergy Oct, Active Indomethacin hives Drug Allergy Oct, Active SOCIAL HISTORY No smoking Hx information available PLAN OF CARE Activity Details Follow Up 2 Months Reason:knee pain VITAL SIGNS Height 67 in 2016-11-04 Weight 152 lbs 2016-11-04 Temperature 97.8 degrees Fahrenheit 2016-11-04 Heart Rate 72 bpm 2016-11-04 Respiratory Rate 18 2016-11-04 BMI 23.80 kg/m2 2016-11-04 Blood pressure systolic 130 mmHg 2016-11-04 Blood pressure diastolic 78 mmHg 2016-11-04 MEDICATIONS Medication Instructions Dosage Frequency Start Date End Date Duration Status Hydrocodone-Acetaminophen 5-325 MG Orally Once a day at bedtime 1 tablet as needed Sep, Active Ibuprofen 800 MG Orally Three times a day 1 tablet 8h Oct,Dec 30 day(s) Active RESULTS Name Result Date Reference Range AMERITOX 2016-11-04 Xray : Hip, Right 2 views (IN HOUSE) 2016-11-04 PROCEDURES Procedure Date Ordered Related Diagnosis Body Site No Charge Nov 04, 2016 X-RAY EXAM HIP UNI 2-3 VIEWS Nov 04, 2016 Office Visit, Est Pt., Level 3 Nov 04, 2016 IMMUNIZATIONS No Known Immunizations
--- OUTSIDE RECORDS SUMMARY | 2017-10-19 21:15 | XMS REPORT ---
Author Author BILLIE CERVANTES [facility] Address [address] [place] [address] Care Team Providers Care Extension Service Advisor Name Role Phone BILLIE CERVANTES Unavailable PROBLEMS Type Condition ICD9-CM Code [id number] Code Onset Dates Condition Status SNOMED Code Problem Screening for malignant neoplasm of the cervix V76.2 Active 534009036 Problem Osteoarthritis, hip, bilateral M16.0 Active 127402528 Problem Intestinal infection due to other organism, NEC 008.8 Active 94031553 Problem Sciatica of right side M54.31 Active 62729834 Problem Osteoarthritis of both knees, unspecified osteoarthritis type M17.0 Active 695470456 Problem Arthralgia, unspecified joint M25.50 Active 26084602 Problem Breast cancer screening Z12.39 Active 408637320 Problem Scoliosis, unspecified scoliosis type, unspecified spinal region M41.9 Active 476351204 Problem Other chronic pain G89.29 Active 30187880 Problem Health examination of defined subpopulation V70.5 Active 003681733 Problem Pain in soft tissues of limb 729.5 Active 66744894 Problem Routine gynecological examination V72.31 Active 182134316530608 Problem Special screening for malignant neoplasms, colon V76.51 Active 340979146 Problem Special screening examination, human papillomavirus [HPV] V73.81 Active 391445996 Problem Other specified counseling V65.49 Active 733601331 Problem Unspecified breast screening V76.10 Active 891011217 Problem 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 Active 48439224 ALLERGIES Unknown Allergies SOCIAL HISTORY No smoking Hx information available PLAN OF CARE VITAL SIGNS MEDICATIONS Medication Instructions Dosage Frequency Start Date End Date Duration Status Hydrocodone-Acetaminophen 5-325 MG Orally Once a day at bedtime 1 tablet as needed Sep, Active RESULTS No Results PROCEDURES No Known procedures IMMUNIZATIONS No Known Immunizations
--- OUTSIDE RECORDS SUMMARY | 2017-10-19 21:15 | XMS REPORT ---
Author Author CONOR DAMON Organization [facility] Address [address] [place] [address] Care Team Providers Care Respiratory Therapist Assistant Name Role Phone DAMONJT MoralesELE Unavailable PROBLEMS Type Condition ICD9-CM Code GVF44-LP Code Onset Dates Condition Status SNOMED Code Problem Pain in soft tissues of limb 729.5 Active 74666559 Problem Osteoarthritis, hip, bilateral M16.0 Active 661449773 Problem Intestinal infection due to other organism, NEC 008.8 Active 09606812 Problem Sciatica of right side M54.31 Active 69872447 Problem Osteoarthritis of both knees, unspecified osteoarthritis type M17.0 Active 215925730 Problem Other chronic pain G89.29 Active 63806441 Problem Breast cancer screening Z12.39 Active 627666420 Problem Scoliosis, unspecified scoliosis type, unspecified spinal region M41.9 Active 597706106 Problem Arthralgia, unspecified joint M25.50 Active 41130892 Problem 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 Active 32121444 Problem Special screening for malignant neoplasms, colon V76.51 Active 632359885 Problem Other specified counseling V65.49 Active 261777281 Problem Special screening examination, human papillomavirus [HPV] V73.81 Active 161427534 Problem Screening for malignant neoplasm of the cervix V76.2 Active 186442505 Problem Routine gynecological examination V72.31 Active 605464547529324 Problem Unspecified breast screening V76.10 Active 937368462 Problem Health examination of defined subpopulation V70.5 Active 203312999 ALLERGIES No Information SOCIAL HISTORY Never Assessed PLAN OF CARE VITAL SIGNS MEDICATIONS Unknown Medications RESULTS No Results PROCEDURES No Known procedures IMMUNIZATIONS No Known Immunizations MEDICAL (GENERAL) HISTORY Type Description Date Medical History scoliosis Surgical History hernia repair 2007 Hospitalization History childbirth x 3
--- OUTSIDE RECORDS SUMMARY | 2017-10-19 21:15 | XMS REPORT ---
Author Author BILLIE CERVANTES [facility] Address [address] [place] [address] Care Team Providers Care Staff Software Engineer Name Role Phone BILLIE CERVANTES Unavailable PROBLEMS Type Condition ICD9-CM Code [id number] Code Onset Dates Condition Status SNOMED Code Problem Pain in soft tissues of limb 729.5 Active 72126933 Problem Osteoarthritis, hip, bilateral M16.0 Active 150245976 Problem Intestinal infection due to other organism, NEC 008.8 Active 26393033 Problem Sciatica of right side M54.31 Active 20923684 Problem Osteoarthritis of both knees, unspecified osteoarthritis type M17.0 Active 753435401 Problem Other chronic pain G89.29 Active 09122847 Problem Breast cancer screening Z12.39 Active 331534026 Problem Scoliosis, unspecified scoliosis type, unspecified spinal region M41.9 Active 122217848 Problem Arthralgia, unspecified joint M25.50 Active 71571677 Problem 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 Active 00755710 Problem Special screening for malignant neoplasms, colon V76.51 Active 978413873 Problem Other specified counseling V65.49 Active 192286459 Problem Special screening examination, human papillomavirus [HPV] V73.81 Active 296550736 Problem Screening for malignant neoplasm of the cervix V76.2 Active 493547012 Problem Routine gynecological examination V72.31 Active 126951080742362 Problem Unspecified breast screening V76.10 Active 090395678 Problem Health examination of defined subpopulation V70.5 Active 137814654 ALLERGIES No Information SOCIAL HISTORY Never Assessed PLAN OF CARE VITAL SIGNS MEDICATIONS Medication Instructions Dosage Frequency Start Date End Date Duration Status Hydrocodone-Acetaminophen 5-325 MG Orally Once a day 1 tablet as needed at bedtime 24h Nov, 28 days Active RESULTS No Results PROCEDURES No Known procedures IMMUNIZATIONS No Known Immunizations MEDICAL (GENERAL) HISTORY Type Description Date Medical History scoliosis Surgical History hernia repair 2007 Hospitalization History childbirth x 3
--- OUTSIDE RECORDS SUMMARY | 2017-10-19 21:15 | XMS REPORT ---
Author Author WALDO PEDROZA [facility] Address [address] [place] [address] Care Team Providers Care Mucker Cofferdam Name Role Phone WALDO PEDROZA Unavailable PROBLEMS Type Condition ICD9-CM Code RFR21-CW Code Onset Dates Condition Status SNOMED Code Problem Pain in soft tissues of limb 729.5 Active 15579883 Problem Osteoarthritis, hip, bilateral M16.0 Active 626515569 Problem Intestinal infection due to other organism, NEC 008.8 Active 24685569 Problem Sciatica of right side M54.31 Active 30355381 Problem Osteoarthritis of both knees, unspecified osteoarthritis type M17.0 Active 855598262 Problem Other chronic pain G89.29 Active 38822481 Problem Breast cancer screening Z12.39 Active 257293708 Problem Scoliosis, unspecified scoliosis type, unspecified spinal region M41.9 Active 845300554 Problem Arthralgia, unspecified joint M25.50 Active 24847825 Problem 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 Active 61612646 Problem Special screening for malignant neoplasms, colon V76.51 Active 890767136 Problem Other specified counseling V65.49 Active 466423045 Problem Special screening examination, human papillomavirus [HPV] V73.81 Active 806471164 Problem Screening for malignant neoplasm of the cervix V76.2 Active 969883324 Problem Routine gynecological examination V72.31 Active 583247081998458 Problem Unspecified breast screening V76.10 Active 313335844 Problem Health examination of defined subpopulation V70.5 Active 032869503 ALLERGIES No Information SOCIAL HISTORY Never Assessed PLAN OF CARE Activity Details Follow Up prn Reason: VITAL SIGNS MEDICATIONS Unknown Medications RESULTS No Results PROCEDURES No Known procedures IMMUNIZATIONS No Known Immunizations MEDICAL (GENERAL) HISTORY Type Description Date Medical History scoliosis Surgical History hernia repair 2007 Hospitalization History childbirth x 3
--- OUTSIDE RECORDS SUMMARY | 2017-10-19 21:16 | XMS REPORT ---
Author Author BILLIE CERVANTES [facility] Address [address] [place] [address] Care Team Providers Care Change Management Manager Name Role Phone BILLIE CERVANTES Unavailable PROBLEMS Type Condition ICD9-CM Code SHD04-BS Code Onset Dates Condition Status SNOMED Code Problem Pain in soft tissues of limb 729.5 Active 99555539 Problem Osteoarthritis, hip, bilateral M16.0 Active 538230514 Problem Intestinal infection due to other organism, NEC 008.8 Active 61012760 Problem Sciatica of right side M54.31 Active 20102698 Problem Osteoarthritis of both knees, unspecified osteoarthritis type M17.0 Active 470067524 Problem Other chronic pain G89.29 Active 52045493 Problem Breast cancer screening Z12.39 Active 691279683 Problem Scoliosis, unspecified scoliosis type, unspecified spinal region M41.9 Active 757502893 Problem Arthralgia, unspecified joint M25.50 Active 29050406 Problem 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 Active 14042913 Problem Special screening for malignant neoplasms, colon V76.51 Active 230764271 Problem Other specified counseling V65.49 Active 659182999 Problem Special screening examination, human papillomavirus [HPV] V73.81 Active 904535948 Problem Screening for malignant neoplasm of the cervix V76.2 Active 328999420 Problem Routine gynecological examination V72.31 Active 738412056169254 Problem Unspecified breast screening V76.10 Active 699314133 Problem Health examination of defined subpopulation V70.5 Active 199185695 ALLERGIES Unknown Allergies SOCIAL HISTORY No smoking Hx information available PLAN OF CARE VITAL SIGNS MEDICATIONS Medication Instructions Dosage Frequency Start Date End Date Duration Status Hydrocodone-Acetaminophen 5-325 MG Orally Once a day at bedtime 1 tablet as needed Oct, Active RESULTS No Results PROCEDURES No Known procedures IMMUNIZATIONS No Known Immunizations
--- OUTSIDE RECORDS SUMMARY | 2017-10-19 21:16 | XMS REPORT ---
Author Author BILLIE CERVANTES [facility] Address [address] [place] [address] Care Team Providers Care Director Dermatology Name Role Phone BILLIE CERVANTES Unavailable PROBLEMS Type Condition ICD9-CM Code SVD55-IN Code Onset Dates Condition Status SNOMED Code Problem Pain in soft tissues of limb 729.5 Active 13649547 Problem Osteoarthritis, hip, bilateral M16.0 Active 054579829 Problem Intestinal infection due to other organism, NEC 008.8 Active 34781868 Problem Sciatica of right side M54.31 Active 76746018 Problem Osteoarthritis of both knees, unspecified osteoarthritis type M17.0 Active 694593894 Problem Other chronic pain G89.29 Active 19839297 Problem Breast cancer screening Z12.39 Active 695369756 Problem Scoliosis, unspecified scoliosis type, unspecified spinal region M41.9 Active 643937304 Problem Arthralgia, unspecified joint M25.50 Active 60001373 Problem 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 Active 38839075 Problem Special screening for malignant neoplasms, colon V76.51 Active 237158036 Problem Other specified counseling V65.49 Active 425739534 Problem Special screening examination, human papillomavirus [HPV] V73.81 Active 920632234 Problem Screening for malignant neoplasm of the cervix V76.2 Active 562365284 Problem Routine gynecological examination V72.31 Active 685941208917044 Problem Unspecified breast screening V76.10 Active 296347769 Problem Health examination of defined subpopulation V70.5 Active 621951709 ALLERGIES Unknown Allergies SOCIAL HISTORY No smoking Hx information available PLAN OF CARE VITAL SIGNS MEDICATIONS Unknown Medications RESULTS No Results PROCEDURES No Known procedures IMMUNIZATIONS No Known Immunizations
--- OUTSIDE RECORDS SUMMARY | 2017-10-19 21:16 | XMS REPORT ---
Author Author KRISTI RODGERS Organization [facility] Address [address] [place] [address] Care Team Providers Care Student Teacher Name Role Phone KRISTI RODGERS Unavailable PROBLEMS Type Condition ICD9-CM Code DAZ15-GD Code Onset Dates Condition Status SNOMED Code Problem Pain in soft tissues of limb 729.5 Active 67740045 Problem Osteoarthritis, hip, bilateral M16.0 Active 853259091 Problem Intestinal infection due to other organism, NEC 008.8 Active 94999130 Problem Sciatica of right side M54.31 Active 80048108 Problem Osteoarthritis of both knees, unspecified osteoarthritis type M17.0 Active 429597946 Problem Other chronic pain G89.29 Active 00897113 Problem Breast cancer screening Z12.39 Active 297872526 Problem Scoliosis, unspecified scoliosis type, unspecified spinal region M41.9 Active 420609283 Problem Arthralgia, unspecified joint M25.50 Active 16774744 Problem 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 Active 68124340 Problem Special screening for malignant neoplasms, colon V76.51 Active 475375059 Problem Other specified counseling V65.49 Active 167165883 Problem Special screening examination, human papillomavirus [HPV] V73.81 Active 722820190 Problem Screening for malignant neoplasm of the cervix V76.2 Active 332618380 Problem Routine gynecological examination V72.31 Active 781164847011820 Problem Unspecified breast screening V76.10 Active 804346602 Problem Health examination of defined subpopulation V70.5 Active 877164060 ALLERGIES No Information SOCIAL HISTORY Never Assessed PLAN OF CARE VITAL SIGNS MEDICATIONS Unknown Medications RESULTS No Results PROCEDURES No Known procedures IMMUNIZATIONS No Known Immunizations MEDICAL (GENERAL) HISTORY Type Description Date Medical History scoliosis Surgical History hernia repair 2007 Hospitalization History childbirth x 3
--- OUTSIDE RECORDS SUMMARY | 2017-10-19 21:16 | XMS REPORT ---
Author Author BILLIE CERVANTES [facility] Address [address] [place] [address] Care Team Providers Care Quality Rep Name Role Phone BILLIE CERVANTES Unavailable PROBLEMS Type Condition ICD9-CM Code [id number] Code Onset Dates Condition Status SNOMED Code Problem Pain in soft tissues of limb 729.5 Active 98566789 Problem Osteoarthritis, hip, bilateral M16.0 Active 689655287 Problem Intestinal infection due to other organism, NEC 008.8 Active 46223376 Problem Sciatica of right side M54.31 Active 88671459 Problem Osteoarthritis of both knees, unspecified osteoarthritis type M17.0 Active 117729091 Problem Other chronic pain G89.29 Active 41358455 Problem Breast cancer screening Z12.39 Active 643074952 Problem Scoliosis, unspecified scoliosis type, unspecified spinal region M41.9 Active 627986360 Problem Arthralgia, unspecified joint M25.50 Active 91896263 Problem 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 Active 95254000 Problem Special screening for malignant neoplasms, colon V76.51 Active 598712036 Problem Other specified counseling V65.49 Active 322785346 Problem Special screening examination, human papillomavirus [HPV] V73.81 Active 622381651 Problem Screening for malignant neoplasm of the cervix V76.2 Active 207201409 Problem Routine gynecological examination V72.31 Active 119809745097651 Problem Unspecified breast screening V76.10 Active 300706336 Problem Health examination of defined subpopulation V70.5 Active 450686142 ALLERGIES Substance Reaction Event Type Date Status Tramadol HCl feels wierd Drug Allergy Nov, Active Indomethacin hives Drug Allergy Nov, Active SOCIAL HISTORY Never Assessed PLAN OF CARE Activity Details Follow Up 3 Months Reason:pain mgmt VITAL SIGNS Height 67 in 2016-11-22 Weight 150.0 lbs 2016-11-22 Temperature 98.5 degrees Fahrenheit 2016-11-22 Heart Rate 102 bpm 2016-11-22 Respiratory Rate 22 2016-11-22 BMI 23.49 kg/m2 2016-11-22 Blood pressure systolic 128 mmHg 2016-11-22 Blood pressure diastolic 84 mmHg 2016-11-22 MEDICATIONS Medication Instructions Dosage Frequency Start Date End Date Duration Status Hydrocodone-Acetaminophen 5-325 MG Orally Once a day at bedtime 1 tablet as needed Oct, Active Ibuprofen 800 MG Orally Three times a day 1 tablet 8h Oct,Dec 30 day(s) Active RESULTS No Results PROCEDURES No Known procedures IMMUNIZATIONS No Known Immunizations MEDICAL (GENERAL) HISTORY Type Description Date Medical History scoliosis Surgical History hernia repair 2006 Hospitalization History childbirth x 3
--- OUTSIDE RECORDS SUMMARY | 2017-10-19 21:16 | XMS REPORT ---
Author Author BILLIE CERVANTES [facility] Address [address] [place] [address] Care Team Providers Care [employer] Salesperson Name Role Phone BILLIE CERVANTES Unavailable PROBLEMS Type Condition ICD9-CM Code EKA59-PW Code Onset Dates Condition Status SNOMED Code Problem Pain in soft tissues of limb 729.5 Active 53620752 Problem Osteoarthritis, hip, bilateral M16.0 Active 473206608 Problem Intestinal infection due to other organism, NEC 008.8 Active 35698546 Problem Sciatica of right side M54.31 Active 60384845 Problem Osteoarthritis of both knees, unspecified osteoarthritis type M17.0 Active 088640764 Problem Other chronic pain G89.29 Active 97553812 Problem Breast cancer screening Z12.39 Active 567373864 Problem Scoliosis, unspecified scoliosis type, unspecified spinal region M41.9 Active 586230920 Problem Arthralgia, unspecified joint M25.50 Active 33769855 Problem 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 Active 79847922 Problem Special screening for malignant neoplasms, colon V76.51 Active 823612827 Problem Other specified counseling V65.49 Active 805011208 Problem Special screening examination, human papillomavirus [HPV] V73.81 Active 978712139 Problem Screening for malignant neoplasm of the cervix V76.2 Active 149519437 Problem Routine gynecological examination V72.31 Active 835148561359400 Problem Unspecified breast screening V76.10 Active 691222548 Problem Health examination of defined subpopulation V70.5 Active 057113746 ALLERGIES Substance Reaction Event Type Date Status Tramadol HCl feels wierd Drug Allergy Dec, Active Indomethacin hives Drug Allergy Dec, Active SOCIAL HISTORY Never Assessed PLAN OF CARE Activity Details Follow Up prn Reason: VITAL SIGNS Height 67 in 2016-12-22 Weight 149.6 lbs 2016-12-22 Temperature 98.0 degrees Fahrenheit 2016-12-22 Heart Rate 120 bpm 2016-12-22 Respiratory Rate 18 2016-12-22 BMI 23.43 kg/m2 2016-12-22 Blood pressure systolic 176 mmHg 2016-12-22 Blood pressure diastolic 102 mmHg 2016-12-22 MEDICATIONS Medication Instructions Dosage Frequency Start Date End Date Duration Status Hydrocodone-Acetaminophen 10-325 MG Orally 3 times a day 1 tablet 8h 08 DecJan, 28 days Active Ibuprofen 800 MG Orally Three times a day 1 tablet 8h Oct,Dec 30 day(s) Active RESULTS No Results PROCEDURES No Known procedures IMMUNIZATIONS No Known Immunizations MEDICAL (GENERAL) HISTORY Type Description Date Medical History scoliosis Surgical History hernia repair 2006 Hospitalization History childbirth x 3
--- OUTSIDE RECORDS SUMMARY | 2017-10-19 21:17 | XMS REPORT | Continuity of Care Document ---
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 Ot M79.89 OTHER SPECIFIED SOFT TISSUE DISORDERS 07/30/2015 Ot 611.71 07/30/2015 Ot 611.72 07/30/2015 Ot 611.71 07/30/2015 Ot 611.72 07/30/2015 TARSHA DELMIS A CLIENT INSIGHTS CONSULTANT Ot 596.89 07/30/2015 TARSHA, DELMIS A CLIENT INSIGHTS CONSULTANT Ot V65.49 07/30/2015 TARSHA, DELMIS A CLIENT INSIGHTS CONSULTANT Ot V72.31 07/30/2015 TARSHA, DELMIS A CLIENT INSIGHTS CONSULTANT Ot V73.81 07/30/2015 TARSHA, DELMIS A CLIENT INSIGHTS CONSULTANT Ot V76.12 07/30/2015 TARSHA, DELMIS A CLIENT INSIGHTS CONSULTANT Ot V76.2 07/30/2015 TARSHA, DELMIS A CLIENT INSIGHTS CONSULTANT Ot V76.51 07/30/2015 TARSHA, DELMIS A CLIENT INSIGHTS CONSULTANT Ot V76.12 08/03/2015 Ot 611.71 08/03/2015 Ot 611.72 08/03/2015 Ot 611.71 08/03/2015 Ot 611.72 08/03/2015 TARSHA, DELMIS A CLIENT INSIGHTS CONSULTANT Ot 596.89 08/03/2015 TARSHA, DELMIS A CLIENT INSIGHTS CONSULTANT Ot V65.49 08/03/2015 TARSHA, DELMIS A CLIENT INSIGHTS CONSULTANT Ot V72.31 08/03/2015 TARSHA, DELMIS A CLIENT INSIGHTS CONSULTANT Ot V73.81 08/03/2015 TARSHA, DELMIS A CLIENT INSIGHTS CONSULTANT Ot V76.12 08/03/2015 TARSHA, DELMIS A CLIENT INSIGHTS CONSULTANT Ot V76.2 08/03/2015 TARSHA, DELMIS A CLIENT INSIGHTS CONSULTANT Ot V76.51 08/03/2015 TARSHA, DELMIS A CLIENT INSIGHTS CONSULTANT Ot V76.12 08/03/2015 ZULAY MUNOZ, TYRON Greene Ot M79.89 08/03/2015 MARYLIN BROCK DO Ot L50.9 URTICARIA, UNSPECIFIED 08/03/2015 Ot 611.71 08/03/2015 Ot 611.72 08/03/2015 Ot 611.71 08/03/2015 Ot 611.72 08/03/2015 TARSHA, DELMIS A CLIENT INSIGHTS CONSULTANT Ot 596.89 08/03/2015 TARSHA, DELMIS A CLIENT INSIGHTS CONSULTANT Ot V65.49 08/03/2015 TARSHA DELMIS A CLIENT INSIGHTS CONSULTANT Ot V72.31 08/03/2015 DARLEEN WILLINGHAMIDI A CLIENT INSIGHTS CONSULTANT Ot V73.81 08/03/2015 TARSHA DELMIS A CLIENT INSIGHTS CONSULTANT Ot V76.12 08/03/2015 DARLEEN WILLINGHAMIDI A CLIENT INSIGHTS CONSULTANT Ot V76.2 08/03/2015 TARSHADARLEENDELMIS A CLIENT INSIGHTS CONSULTANT Ot V76.51 08/03/2015 DARLEEN WILLINGHAMIDI A CLIENT INSIGHTS CONSULTANT Ot V76.12 08/03/2015 ZULAY MUNOZ, TYRON Greene Ot M79.89 11/14/2015 Ot E86.9 VOLUME DEPLETION, UNSPECIFIED 11/14/2015 Ot R11.2 NAUSEA WITH VOMITING, UNSPECIFIED 11/27/2015 DARLEEN WILLINGHAMIDI A CLIENT INSIGHTS CONSULTANT Ot 596.89 11/27/2015 TARSHADARLEENDELMIS A CLIENT INSIGHTS CONSULTANT Ot V65.49 11/27/2015 TARSHADARLEENDELMIS A CLIENT INSIGHTS CONSULTANT Ot V72.31 11/27/2015 TARSHADARLEENDELMIS A CLIENT INSIGHTS CONSULTANT Ot V73.81 11/27/2015 DARLEEN WILLINGHAMIDI A CLIENT INSIGHTS CONSULTANT Ot V76.12 11/27/2015 TARSHADARLEENDELMIS A CLIENT INSIGHTS CONSULTANT Ot V76.2 11/27/2015 TARSHADARLEENDELMIS A CLIENT INSIGHTS CONSULTANT Ot V76.51 11/27/2015 DARLEEN WILLINGHAMIDI A CLIENT INSIGHTS CONSULTANT Ot V76.12 11/27/2015 BILLIE CERVANTES HAND WRAPPER OPERATOR Ot M25.551 11/27/2015 BILLIE CERVANTES HAND WRAPPER OPERATOR Ot M25.551 11/28/2015 BILLIE CERVANTES HAND WRAPPER OPERATOR Ot M25.551 PAIN IN RIGHT HIP 09/30/2016 TARSHADARLEENDELMIS A CLIENT INSIGHTS CONSULTANT Ot 596.89 OTHER SPECIFIED DISORDERS OF BLADDER 09/30/2016 TARSHADARLEENDELMIS A CLIENT INSIGHTS CONSULTANT Ot V65.49 OTHER SPECIFIED COUNSELING 09/30/2016 TARSHADARLEENDELMIS A CLIENT INSIGHTS CONSULTANT Ot V72.31 ROUTINE GYNECOLOGICAL EXAMINATION 09/30/2016 TARSHADARLEENDELMIS A CLIENT INSIGHTS CONSULTANT Ot V73.81 SPECIAL SCREENING EXAMINATION, HUMAN PAP 09/30/2016 TARSHADARLEENDELMIS A CLIENT INSIGHTS CONSULTANT Ot V76.12 OTH SCREEN MAMMO-MALIGN NEOPLASM OF JERAD 09/30/2016 TARSHADARLEENDELMIS A CLIENT INSIGHTS CONSULTANT Ot V76.2 SCREEN MAL NEOP-CERVIX 09/30/2016 TARSHA, DELMIS A CLIENT INSIGHTS CONSULTANT Ot V76.51 SCREEN MAL NEOP-COLON 09/30/2016 TARSHA, DELMIS A CLIENT INSIGHTS CONSULTANT Ot V76.12 OTH SCREEN MAMMO-MALIGN NEOPLASM OF JERAD 10/01/2016 CONOR DAMON CLIENT INSIGHTS CONSULTANT Ot Z12.31 ENCNTR SCREEN MAMMOGRAM FOR MALIGNANT NE 10/06/2016 TARSHA, DELMIS A CLIENT INSIGHTS CONSULTANT Ot 596.89 OTHER SPECIFIED DISORDERS OF BLADDER 10/06/2016 TARSHA, DELMIS A CLIENT INSIGHTS CONSULTANT Ot V65.49 OTHER SPECIFIED COUNSELING 10/06/2016 DARLEEN WILLINGHAMIDI A CLIENT INSIGHTS CONSULTANT Ot V72.31 ROUTINE GYNECOLOGICAL EXAMINATION 10/06/2016 DARLEEN WILLINGHAMIDI A CLIENT INSIGHTS CONSULTANT Ot V73.81 SPECIAL SCREENING EXAMINATION, HUMAN PAP 10/06/2016 TARSHA, DELMIS A CLIENT INSIGHTS CONSULTANT Ot V76.12 OTH SCREEN MAMMO-MALIGN NEOPLASM OF JERAD 10/06/2016 TARSHA, DELMIS A CLIENT INSIGHTS CONSULTANT Ot V76.2 SCREEN MAL NEOP-CERVIX 10/06/2016 TARSHA, DELMIS A CLIENT INSIGHTS CONSULTANT Ot V76.51 SCREEN MAL NEOP-COLON 10/06/2016 TARSHA, DELMIS A CLIENT INSIGHTS CONSULTANT Ot V76.12 OTH SCREEN MAMMO-MALIGN NEOPLASM OF JERAD 10/06/2016 CONOR DAMON CLIENT INSIGHTS CONSULTANT Ot Z12.31 ENCNTR SCREEN MAMMOGRAM FOR MALIGNANT NE 10/06/2016 SCOTT BANKS Ot M25.461 EFFUSION, RIGHT KNEE 10/06/2016 SCOTT BANKS Ot M25.561 PAIN IN RIGHT KNEE 10/06/2016 SCOTT BANKS Ot 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 [DIMAS] 10/06/2016 DARLEEN WILLINGHAMIDI A CLIENT INSIGHTS CONSULTANT Ot 596.89 OTHER SPECIFIED DISORDERS OF BLADDER 10/06/2016 DARLEEN WILLINGHAMIDI A CLIENT INSIGHTS CONSULTANT Ot V65.49 OTHER SPECIFIED COUNSELING 10/06/2016 DARLEEN WILLINGHAMIDI A CLIENT INSIGHTS CONSULTANT Ot V72.31 ROUTINE GYNECOLOGICAL EXAMINATION 10/06/2016 DARLEEN WILLINGHAMIDI A CLIENT INSIGHTS CONSULTANT Ot V73.81 SPECIAL SCREENING EXAMINATION, HUMAN PAP 10/06/2016 DELMIS WILLINGHAM CLIENT INSIGHTS CONSULTANT Ot V76.12 OTH SCREEN MAMMO-MALIGN NEOPLASM OF JERAD 10/06/2016 DELMIS WILLINGHAM CLIENT INSIGHTS CONSULTANT Ot V76.2 SCREEN MAL NEOP-CERVIX 10/06/2016 DELMIS WILLINGHAM CLIENT INSIGHTS CONSULTANT Ot V76.51 SCREEN MAL NEOP-COLON 10/06/2016 DELMIS WILLINGHAM CLIENT INSIGHTS CONSULTANT Ot V76.12 OTH SCREEN MAMMO-MALIGN NEOPLASM OF JERAD 10/06/2016 CONOR DAMON CLIENT INSIGHTS CONSULTANT Ot Z12.31 ENCNTR SCREEN MAMMOGRAM FOR MALIGNANT NE 10/07/2016 SCOTT BANKS Ot M25.461 EFFUSION, RIGHT KNEE 10/07/2016 SCOTT BANKS Ot M25.561 PAIN IN RIGHT KNEE 10/07/2016 SCOTT BANKS Ot 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 [WING] 10/08/2016 SCOTT BANKS Ot M25.461 EFFUSION, RIGHT KNEE 10/08/2016 SCOTT BANKS L Ot M25.561 PAIN IN RIGHT KNEE 10/08/2016 SCOTT BANKS Ot 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 [DIMAS] 10/12/2016 SCOTT BANKS Ot M25.461 EFFUSION, RIGHT KNEE 10/12/2016 SCOTT BANKS Ot M25.561 PAIN IN RIGHT KNEE 10/12/2016 SCOTT BANKS Ot 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 [DIMAS] 11/23/2016 BILLIE CERVANTES HAND WRAPPER OPERATOR Ot M25.561 PAIN IN RIGHT KNEE 12/03/2016 CHRISTEL CASANOVA CLIENT INSIGHTS CONSULTANT Ot I10 ESSENTIAL (PRIMARY) HYPERTENSION 12/03/2016 CHRISTEL CASANOVA APRN Ot M23.92 UNSPECIFIED INTERNAL DERANGEMENT OF LEFT 12/03/2016 CHRISTEL CASANOVA APRN Ot S89.92XA UNSPECIFIED INJURY OF LEFT LOWER LEG, IN 12/06/2016 CHRISTEL CASANOVA CLIENT INSIGHTS CONSULTANT Ot I10 ESSENTIAL (PRIMARY) HYPERTENSION 12/06/2016 CHRISTEL CASANOVA CLIENT INSIGHTS CONSULTANT Ot M23.92 UNSPECIFIED INTERNAL DERANGEMENT OF LEFT 12/06/2016 CHRISTEL CASANOVA CLIENT INSIGHTS CONSULTANT Ot S89.92XA UNSPECIFIED INJURY OF LEFT LOWER LEG, IN 12/07/2016 BLILIE CERVANTES Ot M25.561 PAIN IN RIGHT KNEE 12/09/2016 CHRISTEL CASANOVA CLIENT INSIGHTS CONSULTANT Ot I10 ESSENTIAL (PRIMARY) HYPERTENSION 12/09/2016 CHRISTEL CASANOVA CLIENT INSIGHTS CONSULTANT Ot M23.92 UNSPECIFIED INTERNAL DERANGEMENT OF LEFT 12/09/2016 CHRISTEL CASANOVA CLIENT INSIGHTS CONSULTANT Ot S89.92XA UNSPECIFIED INJURY OF LEFT LOWER LEG, IN 12/22/2016 DELMY DO, MARYLIN K Ot I10 ESSENTIAL (PRIMARY) HYPERTENSION 12/22/2016 DELMY DO, MARYLIN K Ot M16.11 UNILATERAL PRIMARY OSTEOARTHRITIS, RIGHT 12/22/2016 DELMY DO, MARYLIN K Ot M25.551 PAIN IN RIGHT HIP 12/23/2016 DELMY DO, MARYLIN K Ot I10 ESSENTIAL (PRIMARY) HYPERTENSION 12/23/2016 DELMY DO, MARYLIN K Ot M16.11 UNILATERAL PRIMARY OSTEOARTHRITIS, RIGHT 12/23/2016 DELMY DO, MARYLIN K Ot M25.551 PAIN IN RIGHT HIP 12/29/2016 BILLIE CERVANTES HAND WRAPPER OPERATOR Ot M25.561 PAIN IN RIGHT KNEE 01/29/2017 DELMIS WILLINGHAM CLIENT INSIGHTS CONSULTANT Ot 596.89 OTHER SPECIFIED DISORDERS OF BLADDER 01/29/2017 DELMIS WILLINGHAM CLIENT INSIGHTS CONSULTANT Ot V65.49 OTHER SPECIFIED COUNSELING 01/29/2017 DELMIS WILLINGHAM CLIENT INSIGHTS CONSULTANT Ot V72.31 ROUTINE GYNECOLOGICAL EXAMINATION 01/29/2017 DELMIS WILLINGHAM CLIENT INSIGHTS CONSULTANT Ot V73.81 SPECIAL SCREENING EXAMINATION, HUMAN PAP 01/29/2017 DELMIS WILLINGHAM CLIENT INSIGHTS CONSULTANT Ot V76.12 OTH SCREEN MAMMO-MALIGN NEOPLASM OF JERAD 01/29/2017 DELMIS WILLINGHAM CLIENT INSIGHTS CONSULTANT Ot V76.2 SCREEN MAL NEOP-CERVIX 01/29/2017 DELMIS WILLINGHAM A CLIENT INSIGHTS CONSULTANT Ot V76.51 SCREEN MAL NEOP-COLON 01/29/2017 DELMIS WILLINGHAM A CLIENT INSIGHTS CONSULTANT Ot V76.12 OTH SCREEN MAMMO-MALIGN NEOPLASM OF JERAD 01/29/2017 CONOR DAMON CLIENT INSIGHTS CONSULTANT Ot Z12.31 ENCNTR SCREEN MAMMOGRAM FOR MALIGNANT NE 01/31/2017 TYRON BISWAS MD Ot H61.21 IMPACTED CERUMEN, RIGHT EAR 01/31/2017 TYRON BISWAS MD Ot I10 ESSENTIAL (PRIMARY) HYPERTENSION 01/31/2017 TYRON BISWAS MD Ot T16.1XXA FOREIGN BODY IN RIGHT EAR, INITIAL ENCOU Procedures Code [place] [address] ROUTINE VENIPUNCTURE 08/20/2013 11129 CBC 08/20/2013 60723 CMP 08/20/2013 44654 LIPID PANEL 08/20/2013 2563767 GFR CALC (RESULT ONLY) 08/20/2013 81996 MAMMOGRAM, SCREENING 01/30/2014 07580 HEMOCCULT 01/30/2014 81235 XRAY HAND LEFT MIN 3 VIEWS 02/05/2014 21691 PAP SMEAR 02/05/2014 Q0091 PAP SMEAR OBTAIN SMEAR 02/05/2014 UROLOGY NANDA, TERI 02/05/2014 88781 XRAY HAND LEFT MIN 3 VIEWS 10/31/2014 30476 XRAY CERVICAL SPINE, 2 OR 3 VIEWS 01/22/2015 30682 XRAY THORACIC SPINE 2 VIEWS 01/22/2015 72757 XRAY LUMBAR SPINE 2 OR 3 VIEWS 01/22/2015 77065 MAMMOGRAM, SCREENING 02/04/2015 Results There is no data. Encounters ACCT No. Visit Date/Time Discharge Status Pt. Type Provider Facility Loc./Unit Complaint [id number] 02/04/2015 08:31:00 02/04/2015 23:59:59 CLS Outpatient DELMIS WILLINGHAM APRN [id number] 01/22/2015 16:00:00 01/22/2015 23:59:59 CLS Outpatient BILLIE CERVANTES APRN [id number] 10/31/2014 17:48:00 10/31/2014 23:59:59 CLS Outpatient BILLIE CERVANTES APRN [id number] 02/05/2014 09:31:00 02/05/2014 23:59:59 CLS Outpatient BILLIE CERVANTES APRN [id number] 01/30/2014 08:33:00 01/30/2014 23:59:59 CLS Outpatient DELMIS WILLINGHAM APRN [id number] 01/03/2014 09:15:00 01/03/2014 23:59:59 CLS Outpatient EVER TOVAR APRN [id number] 09/11/2013 14:03:00 09/11/2013 23:59:59 CLS Outpatient BILLIE CERVANTES APRN [id number] 08/21/2013 14:10:00 08/21/2013 23:59:59 CLS Outpatient BRANDIN MARICHUY Timothy [id number] 01/06/2013 11:37:00 01/06/2013 23:59:59 CLS Outpatient [id number] 11/09/2012 14:07:00 11/09/2012 23:59:59 CLS Outpatient [id number] 02/24/2013 08:55:00 Document Registration [id number] 01/29/2017 01:50:00 01/29/2017 03:11:00 DIS Outpatient TYRON BISWAS MD [facility] ER BUG IN RT EAR [id number] 12/09/2016 09:00:00 12/29/2016 14:47:00 DIS Outpatient BILLIE CERVANTES [facility] REHAB ACUTE PAIN OF R KNEE [id number] 12/22/2016 09:51:00 12/22/2016 11:20:00 DIS Emergency MARYLIN BROCK DO [facility] ER RIGHT HIP/LEG PAIN [id number] 12/03/2016 09:38:00 12/03/2016 11:58:00 DIS Emergency CHRISTEL CASANOVA CLIENT INSIGHTS CONSULTANT [facility] ER FALL/LEFT KNEE PAIN [id number] 10/06/2016 12:03:00 10/06/2016 13:35:00 DIS Emergency SCOTT BANKS [facility] ER RIGHT KNEE PAIN [id number] 09/30/2016 09:30:00 09/30/2016 23:59:59 CLS Outpatient CONOR DAMON CLIENT INSIGHTS CONSULTANT [facility] RAD SCREENING [id number] 11/13/2015 12:57:00 11/28/2015 08:40:00 DIS Outpatient BILLIE CERVANTES [facility] REHAB RIGHT HIP PAIN [id number] 08/03/2015 21:48:00 08/03/2015 23:44:00 DIS Emergency MARYLIN BROCK DO [facility] ER ALLERGIC REACTION TO MEDS [id number] 07/30/2015 08:21:00 07/30/2015 10:10:00 DIS Emergency ALEYDA MUNOZ, SHAWN Christianson [facility] ER L HAND SWELLING [id number] 07/29/2015 14:12:00 07/29/2015 14:44:00 DIS Emergency ZULAY MUNOZ, TYRON Greene [facility] ER L HAND SWELLING [id number] 02/18/2015 07:37:00 02/18/2015 23:59:59 CLS Outpatient DELMIS WILLINGHAM CLIENT INSIGHTS CONSULTANT [facility] RAD SCREENING [id number] 01/27/2015 16:15:00 01/27/2015 20:33:00 DIS Emergency SCOTT BANKS [facility] ER VOMITING,DIARRHEA, HEAD ACHE [id number] 02/06/2014 07:08:00 02/06/2014 23:59:59 CLS Outpatient DELMIS WILLINGHAM CLIENT INSIGHTS CONSULTANT [facility] RAD SCREENING [id number] 11/14/2015 21:36:00 Document Registration [id number] 07/30/2015 10:15:00 Document Registration [id number] 07/30/2015 10:15:00 Document Registration [id number] 07/30/2015 10:15:00 Document Registration [id number] 01/01/2013 07:55:00 Document Registration [id number] 12/27/2012 09:49:00 Document Registration [id number] 12/17/2012 17:41:00 Document Registration [id number] 09/29/2012 07:28:00 Document Registration [id number] 05/06/2010 08:41:00 Document Registration [id number] 04/28/2010 12:00:00 Document Registration
--- NOTE | 2017-10-19 21:27 | ED Back Pain ---
General Chief Complaint: Back Problems Stated Complaint: LOWER BACK PAIN Nursing Triage Note: left middle back pain Nursing Sepsis Screen: No Definite Risk Source of Information: Patient, Other Exam Limitations: No Limitations History of Present Illness Time Seen by Provider: 21:18 Initial Comments Patient presents to ER by private conveyance with a significant other and a chief complaint that 2-3 days ago she took a fall across her living room and landed with her back against the knee of her granddaughter who was sitting on the couch. She did not strike her head nor did she lose consciousness. She's not had any nausea or vomiting or off balance since that time. She's been using Motrin with little relief. She does have hydrocodone ordered for her back pain routinely at night that she takes sometimes but has not taken any since the fall. She denies any dysuria cough, shortness of breath, chest pain, fevers, chills, weakness. She feels that it hurts worse when she takes a deep breath her has an occasional dry cough and is concerned that she may have cracked a rib. Her pain does not radiate up or down her spine or down either leg. She's not having any incontinence of her urine or bowels. She's not having any weakness or further falls since that time. Allergies and Home Medications Allergies Coded Allergies: No Known Drug Allergies (Verified , 10/15/08) Home Medications No Active Prescriptions or Reported Meds Constitutional: No chills, No fever, No malaise EENTM: No ear pain, No eye pain Respiratory: cough, No phlegm, No short of breath Cardiovascular: No chest pain, No palpitations, No syncope Gastrointestinal: No abdominal pain, No constipation, No diarrhea, No nausea Genitourinary: No decreased output, No dysuria, No frequency Musculoskeletal: see HPI, back pain Skin: No pruritus, No rash Psychiatric/Neurological: Denies Headache, Denies Numbness, Denies Paresthesia , Denies Tingling, Denies Weakness Past Yjyznee-Hanzpd-Pfdhpi Hx Patient Social History Alcohol Use: Denies Use Recreational Drug Use: No Smoking Status: Never a Smoker 2nd Hand Smoke Exposure: No Recent Foreign Travel: No Contact w/Someone Who Travel: No Recent Infectious Disease Expo: No Recent Hopitalizations: No Immunizations Up To Date Tetanus Booster (TDap): More than 5yrs Date of Influenza Vaccine: Jul 17, 2012 Seasonal Allergies Seasonal Allergies: No Surgeries History of Surgeries: Yes (HIATAL HERNIA REPAIR) Surgeries: Abdominal, Tubal Ligation Respiratory History of Respiratory Disorde: No Cardiovascular History of Cardiac Disorders: Yes Cardiac Disorders: Hypertension Neurological History of Neurological Disord: No Reproductive System : No Hx Reproductive Disorders: No Sexually Transmitted Disease: No SENIOR POLICY ADVISOR History: Tubal Ligation, Menopausal Genitourinary History of Genitourinary Disor: No Gastrointestinal History of Gastrointestinal Di: Yes Gastrointestinal Disorders: Gastroesophageal Reflux, Hiatal Hernia Musculoskeletal History of Musculoskeletal Dis: Yes Musculoskeletal Disorders: Arthritis, Scoliosis Endocrine History of Endocrine Disorders: No HEENT History of HEENT Disorders: No Cancer History of Cancer: No Psychosocial History of Psychiatric Problem: No Integumentary History of Skin or Integumenta: No Blood Transfusions History of Blood Disorders: No Family Medical History Significant Family History: No Pertinent Family Hx Physical Exam Vital Signs Vital Sign - Last 12Hours 10/19/17 21:10 Temp 97.7 Pulse 107 Resp 18 B/P (MAP) 186/105 (132) Pulse Ox 99 O2 Delivery Room Air Capillary Refill : Less Than 3 Seconds General Appearance: No Apparent Distress, WD/WN HEENT: PERRL/EOMI, Pharynx Normal Neck: Full Range of Motion, Normal Inspection, Non Tender, Supple Cardiovascular: No Edema, Normal Peripheral Pulses Respiratory: No Accessory Muscle Use, No Respiratory Distress Peripheral Pulses: 2+ Radial Pulses (R), 2+ Radial Pulses (L) Back: Normal Inspection, CVA Tenderness (L), Vertebral Tenderness (lumbar and left paralumbar tenderness to palpation) Extremity: Normal Capillary Refill, No Pedal Edema Neurologic/Psychiatric: Alert, Oriented x3, No Motor/Sensory Deficits, Normal Mood/Affect Skin: Normal Color, Warm/Dry Progress/Results/Core Measures Results/Orders My Orders Orders - KAYLAH FRANCO Chest Pa/Lat (2 View) (10/19/17 21:20) Ketorolac Injection (Toradol Injection) (10/19/17 21:30) Ua Culture If Indicated (10/19/17 21:20) Ketorolac Injection (Toradol Injection) (10/19/17 21:30) Medications Given in ED Current Medications Medications Dose Ordered Sig/Davis Route Start Time Stop Time Status Last Admin Dose Admin Ketorolac Tromethamine 15 mg ONCE ONCE IM 10/19/17 21:30 10/19/17 21:31 DC 10/19/17 21:28 15 MG Vital Signs/I&O Vital Sign - Last 12Hours 10/19/17 10/19/17 21:10 21:28 Temp 97.7 97.7 Pulse 107 Resp 18 B/P (MAP) 186/105 (132) Pulse Ox 99 O2 Delivery Room Air Blood Pressure Mean: 132 Progress Note : Time: 21:25 Progress Note She is having a little tenderness around the base of her posterior left ribs so we'll get a 2 view chest x-ray. Rest of her tenderness seems to be in the soft tissues so we'll get a urinalysis to look for any blood in the kidneys that might indicate a renal contusion. We'll also give her ketorolac to help with pain. The patient prefers not to have narcotics at this time. She is okay with cyclobenzaprine. Diagnostic Imaging Diagonstic Imaging: Xray Plain Films/CT/US/NM/MRI: chest (2v) Comments No acute osseous maladies. No acute cardiopulmonary processes noted. NAME: ANUPAM SINGLETON MED REC#: [id number] PHYSICIAN: KAYLAH FRANCO MD CC: ESTEFANIA CHA MD; KAYLAH FRANCO Page 1 of 1 RADIOLOGY REPORT VIA [facility]. [place], [place] CC: ESTEFANIA CHA MD; KAYLAH FRANCO Page 1 of 1 RADIOLOGY REPORT NAME: ANUPAM SINGLETON Robe [facility] REC#: [id number] PT STATUS: REG ER : 1960 PHYSICIAN: KAYLAH FRANCO MD ADMIT DATE: 10/19/17/ER Signed Date of Exam: 10/19/17 CHEST PA/LAT (2 VIEW) INDICATION: Pain, fall. COMPARISON: 02/09/2010. TECHNIQUE: Two radiographs of the chest dated October 19, 2017. FINDINGS: The cardiac silhouette is within normal limits. No significant pulmonary vascular congestion. The lungs are clear. No pleural effusion. No pneumothorax. Accentuation of the normal thoracic kyphosis. Scattered osseous degenerative changes without acute osseous abnormality. IMPRESSION: 1. No acute cardiopulmonary abnormality. 2. Accentuation of the normal thoracic kyphosis. Dictated by: Dictated on workstation # [id number] Dict: 10/19/172206 Trans: 10/19/172243 Interpreted by: ESTEFANIA CHA MD Electronically signed by: ESTEFANIA CHA MD 10/19/174 Reviewed: Reviewed by Me Departure Impression Impression: Primary Impression: Fall Qualified Codes: W19.XXXA - Unspecified fall, initial encounter Additional Impression: Left low back pain Qualified Codes: M54.5 - Low back pain Disposition: HOME, SELF-CARE Condition: Stable Departure-Patient Inst. Decision time for Depature: 23:20 [address]errals: [facility] (PCP/Family) Primary Care Physician Patient Instructions: Low Back Pain (DC) Add. Discharge Instructions: Drink plenty of water and use Tylenol 1000 mg every 8 hours and or ibuprofen 800 mg every 8 hours. Use heating pads, icy hot or other creams and you can also obtain a [id number] back brace from [facility] or your pharmacy to help with your low back pain. Follow up with your primary care physician in the next week and have them check a urine sample especially if you're expressing urinary tract pain or red tinged urine. All discharge instructions reviewed with patient and/or family. Voiced understanding. Scripts Cyclobenzaprine HCl (Cyclobenzaprine HCl) 10 Mg Tablet 10 MG PO Q8H Y for SPASMS, #15 TAB 0 Refills Prov: KAYLAH FRANCO 10/19/17 Copy Copies To 1: MARICHUY GHOTRA DO KAYLAH FRANCO Oct 19, 2017 21:27
[2017-10-19] MEDS ORDERED: KETOROLAC 30 MG/ML VIAL IM ONE (21:30)
[2017-10-19] MEDS ORDERED: KETOROLAC 30 MG/ML VIAL IVP ONE (21:30)
--- NOTE | 2017-10-19 22:20 | Diagnostic Imaging Report ---
INDICATION: Pain, fall. COMPARISON: 02/09/2010. TECHNIQUE: Two radiographs of the chest dated October 19, 2017. FINDINGS: The cardiac silhouette is within normal limits. No significant pulmonary vascular congestion. The lungs are clear. No pleural effusion. No pneumothorax. Accentuation of the normal thoracic kyphosis. Scattered osseous degenerative changes without acute osseous abnormality. IMPRESSION: 1. No acute cardiopulmonary abnormality. 2. Accentuation of the normal thoracic kyphosis. Dictated by: Dictated on workstation # [id number]
[2017-10-19] MEDS ORDERED: CYCL10TA9 PO (23:20)
[2017-10-19 23:25] VITALS: BP 156/92
== END 2017-10-19 23:25 | disposition home or self-care (01) ==
LOC: EDUNIT# 21:08 → ER 21:09
DX: M54.5 Low back pain (principal); I10 Essential (primary) hypertension; K21.9 Gastro-esophageal reflux disease without esophagitis; Z98.51 Tubal ligation status; Z87.19 Personal history of other diseases of the digestive system; W18.30XA Fall on same level, unspecified, initial encounter; Y92.008 Other place in unspecified non-institutional (private) residence as the place of occurrence of the external cause
CPT/HCPCS: 71046; 99281

== ENCOUNTER 2018-06-25 12:58 | Emergency (ER) | payer SELFPAY ==
[~2018-06-25] VITALS: Ht 167.6 cm; Wt 68.0 kg
[~2018-06-25 12:58] MED LIST changes: +CYCL10TA9 PO
--- NOTE | 2018-06-25 13:57 | ED EENT ---
History of Present Illness General Chief Complaint: Oral/Throat Problems Stated Complaint: COUGH,NAUSEA,SORE THROAT Nursing Triage Note: ARRIVED VIA AMB TO ROOM TO FAST TRACK. COMPLAINS OF SORETHROAT AND HEADACHE. Source: patient Exam Limitations: no limitations History of Present Illness Date Seen by Provider: Jun 25, 2018 Time Seen by Provider: 13:51 Initial Comments Patient is a 58 year old female who presents to the emergency room for complaints of sore throat, cough and headache for 2 days. Denies fever or productive cough. Timing/Duration: yesterday Location: throat Prearrival Treatment: no prearrival treatment Associated Symptoms: cough, sore throat Allergies and Home Medications Allergies Coded Allergies: No Known Drug Allergies (Verified , 10/15/08) Home Medications Cyclobenzaprine HCl 10 Mg Tablet, 10 MG PO Q8H PRN for SPASMS Prescribed by: KAYLAH FRANCO on 10/19/17 4434 Patient Home Medication List Home Medication List Reviewed: Yes Review of Systems Review of Systems Constitutional: see HPI; No chills, No fever Throat: see HPI, pain Respiratory: see HPI, cough Neurological: See HPI, Headache All Other Systems Reviewed Negative Unless Noted: Yes Past Yhdvbdd-Mdtzky-Kuszdj Hx Past Med/Social Hx: Reviewed Nursing Past Med/Soc Hx Patient Social History Alcohol Use: Denies Use Recreational Drug Use: No Smoking Status: Never a Smoker 2nd Hand Smoke Exposure: No Recent Foreign Travel: No Contact w/Someone Who Travel: No Recent Infectious Disease Expo: No Recent Hopitalizations: No Immunizations Up To Date Tetanus Booster (TDap): More than 5yrs Date of Influenza Vaccine: Jul 17, 2012 Seasonal Allergies Seasonal Allergies: No Past Medical History Surgeries: Yes (HIATAL HERNIA REPAIR) Abdominal, Tubal Ligation Respiratory: No Cardiac: Yes Hypertension Neurological: No 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 0oz. 68.100724pc; 24.43 BMI Method:Stated General Appearance: WD/WN, no apparent distress Eyes: bilateral eye normal inspection, bilateral eye PERRL, bilateral eye EOMI Ears: bilateral ear auricle normal, bilateral ear canal normal, bilateral ear TM normal Nose: normal inspection Mouth/Throat: normal mouth inspection, pharynx normal, dental tenderness Neck: non-tender, full range of motion, supple, normal inspection Cardiovascular: normal peripheral pulses, regular rate, rhythm, no edema, no gallop, no JVD, no murmur Respiratory: chest non-tender, lungs clear, normal breath sounds, no respiratory distress, no accessory muscle use Neurologic/Psychiatric: alert, normal mood/affect, oriented x 3 Skin: normal color, warm/dry Progress/Results/Core Measures Results/Orders Vital Signs/I&O Blood Pressure Mean: 122 Progress Progress Note : Time: 13:50 Progress Note Given the patients normal exam I believe this is viral illness. I have sent her home with prescription for cough medicine. She was instructed to treat the symptoms with over the counter medications. She agrees with plan of care and return precautions were given. Departure Impression Primary Impression: Viral respiratory illness Disposition: HOME, SELF-CARE Condition: Stable/Unchanged Departure-Patient Inst. Decision time for Depature: 13:52 Referrals: [facility] (PCP/Family) Primary Care Physician Patient Instructions: VIRAL RESP ILLNESS-ADULT Add. Discharge Instructions: Take medication as directed. Follow-up with your primary care provider within 1 week for recheck. Call first thing Tuesday morning for an appointment time. Return back to the emergency room for any worsening symptoms, fevers, or any other concerns as needed. All discharge instructions reviewed with patient and/ or family. Voiced understanding. LAUREL STORY Jun 25, 2018 13:57
[2018-06-25 14:15] VITALS: BP 186/90
== END 2018-06-25 14:15 | disposition home or self-care (01) ==
LOC: EDUNIT# 12:58 → ER 12:59
DX: J06.9 Acute upper respiratory infection, unspecified (principal); I10 Essential (primary) hypertension; K21.9 Gastro-esophageal reflux disease without esophagitis; Z98.890 Other specified postprocedural states; Z98.51 Tubal ligation status
CPT/HCPCS: 99282

== ENCOUNTER → 2018-09-26 | Outpatient (CLI) | payer OTHER ==
--- NOTE | 2018-09-27 08:10 | Diagnostic Imaging Report ---
INDICATION: Screening. EXAMINATION: Digital mammogram bilateral screening with 3-D tomosynthesis. This study was compared to prior exams of 09/30/2016, 02/18/2015 and 02/06/2014. At this time, there are no current complaints. The current study was also evaluated with a Computer Aided Detection (CAD) system. FINDINGS: The fibroglandular tissue in both breasts is heterogeneously dense. This does limit the sensitivity of this exam. Overall, there does not appear to have been any significant change when compared to the prior study. No primary or secondary sign of malignancy is noted. IMPRESSION: There is no radiographic evidence for malignancy. ACR BI-RADS Category 1: Negative. Result letter will be mailed to the patient. Note: At least 10% of breast cancer is not imaged by mammography. Dictated by: Dictated on workstation # [id number]
== END ==
LOC: RAD 09:35
PROVIDERS: ATTEND Nurse Practitioner Community Health
DX: Z12.31 Encounter for screening mammogram for malignant neoplasm of breast (principal)
CPT/HCPCS: 77067

== ENCOUNTER 2019-01-20 17:11 | Emergency (ER) | payer SELFPAY ==
[~2019-01-20] VITALS: Ht 170.2 cm; Wt 69.4 kg
--- NOTE | 2019-01-20 19:32 | ED Upper Extremity ---
General Chief Complaint: Upper Extremity Stated Complaint: R ELBOW PAIN Nursing Triage Note: MARY STATES THAT SHE STARTED HAVING ELBOW PAIN ON TUESDAY. SHE DID NOT HAVE AN INJURY. Nursing Sepsis Screen: No Definite Risk Source: patient Exam Limitations: no limitations History of Present Illness Date Seen by Provider: Jan 20, 2019 Time Seen by Provider: 19:29 Initial Comments To ER with reports of right posterolateral elbow pain for about 4 days with no known injury. Occasionally the pain shoots down her arm to her hand. Onset: just prior to arrival Severity: moderate Pain/Injury Location: left elbow Method of Injury: unknown Allergies and Home Medications Allergies Coded Allergies: No Known Drug Allergies (Verified , 10/15/08) Patient Home Medication List Home Medication List Reviewed: Yes Review of Systems Constitutional: see HPI EENTM: see HPI Respiratory: no symptoms reported Cardiovascular: no symptoms reported Genitourinary: no symptoms reported Musculoskeletal: see HPI Skin: no symptoms reported Psychiatric/Neurological: No Symptoms Reported (no I do not) Past Viytlfg-Jecqdf-Cipcph Hx Patient Social History Alcohol Use: Denies Use Recreational Drug Use: No Smoking Status: Never a Smoker 2nd Hand Smoke Exposure: No Recent Foreign Travel: No Contact w/Someone Who Travel: No Recent Infectious Disease Expo: No Recent Hopitalizations: No Immunizations Up To Date Tetanus Booster (TDap): More than 5yrs Date of Influenza Vaccine: Jul 17, 2012 Seasonal Allergies Seasonal Allergies: No Past Medical History Surgeries: Yes (HIATAL HERNIA REPAIR) Abdominal, Tubal Ligation Respiratory: No Cardiac: Yes Hypertension Neurological: No 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 0oz. 69.706561if; 24.43 BMI Method:Stated General Appearance: WD/WN, no apparent distress HEENT: PERRL/EOMI, normal ENT inspection Neck: non-tender, full range of motion Respiratory: no respiratory distress, no accessory muscle use Gastrointestinal: normal bowel sounds, non tender, soft Shoulder: normal inspection, non-tender Elbow/Forearm: normal inspection, non-tender, normal ROM, Right Wrist: Yes normal inspection Hand: normal inspection, non-tender Neurologic/Tendon: normal sensation, normal motor functions Neurologic/Psychiatric: alert, normal mood/affect, oriented x 3 Skin: normal color, warm/dry Progress/Results/Core Measures Results/Orders My Orders Orders - CHRISTEL CASANOVA APRN Elbow, Right, 3 Views (01/20/19 19:22) Vital Signs/I&O 01/20/19 17:39 Temp 98.4 Pulse 86 Resp 18 B/P (MAP) 194/89 (124) Pulse Ox 100 Blood Pressure Mean: 124 Departure Impression Primary Impression: Elbow joint pain Qualified Codes: M25.521 - Pain in right elbow Disposition: 01 HOME, SELF-CARE Condition: Stable Departure-Patient Inst. Decision time for Depature: 19:31 Referrals: CIRO MEYER MD [facility] (PCP/Family) Primary Care Physician ARNIE JENSEN MD,ESTEFANI GARCIA,CHUCK FRANKLIN,DERIC Brand MD Patient Instructions: NO INSTRUCTIONS GIVEN Add. Discharge Instructions: 1. Follow-up with your primary care doctor or call one of the orthopedic surgeons listed to further evaluate the cause of your elbow pain. All discharge instructions reviewed with patient and/or family. Voiced understanding. CHRISTEL CASANOVA APRN Jan 20, 2019 19:32
--- NOTE | 2019-01-20 19:49 | Diagnostic Imaging Report ---
INDICATION: Posterior right elbow pain. No known injury. FINDINGS: 3 views of the right elbow demonstrates a osteophyte off of the olecranon. Joint space appears normal. No fracture, dislocation or joint effusion is present. IMPRESSION: There is a osteophyte off the olecranon. Dictated by: Dictated on workstation # [id number]
[2019-01-20 20:11] VITALS: BP 194/89
== END 2019-01-20 20:11 | disposition home or self-care (01) ==
LOC: EDUNIT# 17:11 → ER 17:12
DX: M25.521 Pain in right elbow (principal); I10 Essential (primary) hypertension; K21.9 Gastro-esophageal reflux disease without esophagitis; M41.9 Scoliosis, unspecified; Z98.51 Tubal ligation status
CPT/HCPCS: 73080

== ENCOUNTER 2021-06-09 05:37 | Outpatient (CLI) | payer OTHER ==
[~2021-06-09] VITALS: Ht 165.1 cm; Wt 73.0 kg
[~2021-06-09 05:37] MED LIST changes: -SULF1TAB35 PO; -TRAM50TA2 PO; +TRM50T PO
[2021-06-10] MEDS ORDERED: IBUP-1780 PO (10:00)
[2021-06-10] MEDS ORDERED: ALEN70TA80 PO (10:00)
[2021-06-10] MEDS ORDERED: MV-M1TAB20 PO (10:00)
[2021-06-10] MEDS ORDERED: ACHD5005 PO (10:00)
[2021-06-10] MEDS ORDERED: OMEG1CAP24 PO (10:00)
== END 2021-06-10 12:29 | disposition home or self-care (01) ==
LOC: PREOP 05:37
PROVIDERS: ATTEND Surgery
DX: Z01.818 Encounter for other preprocedural examination (principal)

== ENCOUNTER 2021-06-16 10:46 | Day surgery (SDC) | payer OTHER ==
[~2021-06-16] VITALS: Ht 165.1 cm; Wt 73.0 kg
[~2021-06-16 10:46] MED LIST changes: +ALEN70TA80 PO; +MV-M1TAB20 PO; +OMEG1CAP24 PO
[2021-06-16] MEDS ORDERED: LACTATED RINGERS 1,000 ML IV STA (10:51)
[2021-06-16 11:35] VITALS: BP 153/78
[2021-06-16] MEDS ORDERED: ONDANSETRON 4 MG/2 ML (SDV) Z0FRAN ONE (11:58)
[2021-06-16] MEDS ORDERED: PROPOFOL INJECTION 50 ML IV ONE (11:58)
[2021-06-16] MEDS ORDERED: MIDAZOLAM 2 MG/2 ML (VERSED) VIAL ONE (11:58)
[2021-06-16 12:40] VITALS: BP 89/53
--- NOTE | 2021-06-16 12:42 | Progress Note-Post Operative ---
Post-Operative Progess Note Surgeon (s)/Sales Enablement Specialist (s) Surgeon BAKARI AVILEZ DO Sales Enablement Specialist: na Pre-Operative Diagnosis bright red blood in stool Post-Operative Diagnosis Ileocecal valve mucosal change ascending colon polyp internal hemorrhoids slight anal rectal mucosal change Procedure & Operative Findings Date of Procedure 06/16/21 Procedure Performed/Findings colonoscopy c cold biopsy ileocecal valve, hot bx polypectomy ascending colon polyp, cold biopsy anorectal mucosa Anesthesia Type per mason tender Estimated Blood Loss Estimated blood loss (mL): scant Specimens/Packing Specimens Removed ileocecal valve, ascending colon polyp, anorectal mucosa BAKARI AVILEZ DO Jun 16, 2021 12:42
--- NOTE | 2021-06-16 12:43 | Discharge Inst-Simple/Standard ---
Discharge Inst-Standard Patient Instructions/Follow Up Plan of Care/Instructions/FU: 2 weeks iraj Activity as Tolerated: Yes Discharge Diet: Regular Diet BAKARI AVILEZ DO Jun 16, 2021 12:43
[2021-06-16 12:45] VITALS: BP 99/50
[2021-06-16 12:50] VITALS: BP 106/54
--- NOTE | 2021-06-16 13:05 | Anesthesia-General Post-Op ---
MAC Patient Condition Mental Status/LOC: Same as Preop Cardiovascular: Satisfactory Nausea/Vomiting: Absent Respiratory: Satisfactory Pain: Controlled Complications: Absent Post Op Complications Complications None Follow Up Care/Instructions Patient Instructions None needed. Anesthesiology Discharge Order Discharge Order Patient is doing well, no complaints, stable vital signs, no apparent adverse anesthesia problems. No complications reported per nursing. WALDO LÓPEZ CRNA Jun 16, 2021 13:05
[2021-06-16 13:10] VITALS: BP 140/77
--- NOTE | 2021-06-16 13:21 | OPERATIVE REPORT ---
DATE OF SERVICE: 06/16/2021 PREOPERATIVE DIAGNOSIS: Bright red blood in stool. POSTOPERATIVE DIAGNOSES: Ileocecal valve, mucosal change, ascending colon polyp, internal hemorrhoids, slight anorectal mucosal change. PROCEDURE: Colonoscopy with cold biopsy of ileocecal valve, hot biopsy polypectomy, ascending colon polyp, cold biopsy anorectal mucosa. SURGEON: Bakari Spear DO ANESTHESIA: Per LUCERNE FARMER. ESTIMATED BLOOD LOSS: Scant. COMPLICATIONS: None. INDICATIONS: The patient is a 61-year-old female with bright red blood in stool. She understands risks and benefits of procedure and wished to proceed with procedure. Consent was signed in the chart. DESCRIPTION OF PROCEDURE: The patient was taken to the endoscopy suite, placed in left lateral recumbent position. Timeout was performed. Digital rectal exam was performed, slight mucosal change in the anus also noting internal hemorrhoids. No palpable polyps, masses or ulcerations. Scope was inserted in the rectum, advanced all the way to cecum with minimal difficulty. Prep was adequate. Scope was slowly retracted back. There were no polyps, masses or ulcerations in the cecum. In the ileocecal valve, mucosal changes present, cold biopsy was obtained. In the ascending colon, a small polyp was present, which hot biopsy polypectomy was performed. Scope was then continuously retracted back. No other polyps, masses or ulcerations within the ascending, transverse, descending and sigmoid colon. Once in the rectum, scope was retroflexed noting some internal hemorrhoids. Also some slight mucosal changes. Biopsies of the anorectal area were obtained, slight bleeding present. Pressure was held and scope was returned to its normal position, slowly withdrawn until completely removed. The patient tolerated procedure well without any complications, taken to recovery room in stable condition. RECOMMENDATIONS: The patient will follow up on biopsies. If continues to have bleeding could be internal hemorrhoids as the source, would consider hemorrhoidectomy. Further recommendations pending biopsy results. CC: [facility] -- requested, unable to deliver. Job ID: [id number] DocumentID: [id number] Dictated Date: 06/16/2021 12:46:08 Intensive Care Nurse Date: 06/16/2021 13:19:47 Dictated By: BAKARI SPEAR DO
[2021-06-16 13:30] VITALS: BP 140/77
== END 2021-06-16 13:30 | disposition home or self-care (01) ==
LOC: ENDO 10:46
PROVIDERS: ATTEND Surgery
DX: K63.5 Polyp of colon (principal); K64.8 Other hemorrhoids; K44.9 Diaphragmatic hernia without obstruction or gangrene; R73.03 Prediabetes; M81.0 Age-related osteoporosis without current pathological fracture; M19.90 Unspecified osteoarthritis, unspecified site; M41.9 Scoliosis, unspecified; Z80.0 Family history of malignant neoplasm of digestive organs; Z79.899 Other long term (current) drug therapy; Z79.891 Long term (current) use of opiate analgesic; Z79.1 Long term (current) use of non-steroidal anti-inflammatories (NSAID); Z98.890 Other specified postprocedural states

== ENCOUNTER 2021-08-26 11:00 | Outpatient (RCR) | payer OTHER ==
[~2021-08-26 11:00] MED LIST changes: +CYCL10TA25 PO; -CYCL10TA9 PO
== END 2021-09-25 09:20 | disposition home or self-care (01) ==
PROVIDERS: ATTEND Nurse Practitioner
DX: M16.12 Unilateral primary osteoarthritis, left hip (principal)

== ENCOUNTER → 2021-08-31 | Outpatient (CLI) | payer OTHER ==
[~2021-08-31] VITALS: Ht 167.6 cm; Wt 72.7 kg
[~2021-08-31] MED LIST changes: -CYCL10TA25 PO; +CYCL10TA9 PO; +LIDOCAINE 1% INJ 20 ML 20 ML VIAL INJ ONE; +LIDOCAINE 1% INJ 20 ML 20 ML VIAL ONE
--- NOTE | 2021-08-31 12:29 | Diagnostic Imaging Report ---
INDICATION: Right breast nodules. Patient presents for ultrasound-guided biopsy. DETAILS OF THE PROCEDURE: The patient was brought to the ultrasound suite and placed on the table in the supine position. Ultrasound imaging of the right breast was performed to evaluate for an appropriate entry site. The right breast was prepped and draped in the usual sterile fashion. A small amount of 1% lidocaine was utilized for local anesthesia. A hypoechoic nodule at the 11 o'clock location of the right breast 4 cm from the nipple is visualized. A total of three core biopsies through the lesion was performed with a 14-gauge Achieve needle. A marker clip was then deployed. Hemostasis was obtained. The patient tolerated the procedure well. IMPRESSION: Successful ultrasound guided core biopsy of a hypoechoic nodule at the 11 o'clock location of the right breast 4 cm from the nipple. Pathology results are currently pending. Dictated by: Dictated on workstation # [id number]
--- NOTE | 2021-08-31 12:31 | Diagnostic Imaging Report ---
INDICATION: Right breast nodule. Patient presents for biopsy. DETAILS OF THE PROCEDURE: The patient was brought to the sonographic suite and placed on the table in the supine position. Ultrasound imaging of the right breast was performed to evaluate for an appropriate entry site. The right breast was prepped and draped in the usual sterile fashion. A small amount of 1% lidocaine was utilized for local anesthesia. A 13-gauge hand held vacuum assisted mammotome device was utilized to obtain multiple core biopsies of the small hypoechoic nodule at the 11 o'clock location of the right breast 6 cm from the nipple. A marker clip was then deployed. Hemostasis was obtained using manual compression. The patient tolerated the procedure well and was sent for a post procedure mammogram in satisfactory condition. IMPRESSION: Successful ultrasound-guided core biopsy of the tiny hypoechoic nodule at the 11 o'clock location of the right breast 6 cm from the nipple utilizing a hand-held vacuum-assisted mammotome device. Pathology results are currently pending. Dictated by: Dictated on workstation # [id number]
--- NOTE | 2021-08-31 13:34 | Diagnostic Imaging Report ---
INDICATION: Right breast nodules, status post ultrasound-guided biopsy. TECHNIQUE: Unilateral right 2D CC and ML mammography was performed post biopsy. FINDINGS: There are two marker clips in the upper and outer aspect of the right breast status post right breast ultrasound-guided biopsy. IMPRESSION: Clips in place, as described. Dictated by: Dictated on workstation # [id number]
== END ==
LOC: RAD 09:45
PROVIDERS: ATTEND Nurse Practitioner
DX: N63.11 Unspecified lump in the right breast, upper outer quadrant (principal)
CPT/HCPCS: 19083; 19084; 77065; G0279

== ENCOUNTER 2021-09-30 05:39 | Outpatient (CLI) | payer OTHER ==
[~2021-09-30] VITALS: Ht 165.1 cm; Wt 73.2 kg
[~2021-09-30 05:39] MED LIST changes: +CYCL10TA25 PO; -CYCL10TA9 PO; -LIDOCAINE 1% INJ 20 ML 20 ML VIAL INJ ONE; -LIDOCAINE 1% INJ 20 ML 20 ML VIAL ONE
== END 2021-10-02 12:10 | disposition home or self-care (01) ==
LOC: PREOP 05:39
PROVIDERS: ATTEND Surgery
DX: Z01.818 Encounter for other preprocedural examination (principal)

== ENCOUNTER 2021-10-02 08:35 | Outpatient (RCR) | payer OTHER ==
[2021-10-02 09:53] LABS: BASOPHILS # (AUTO) 0.1 10^3/uL (0.0-0.1); BASOPHILS % (AUTO) 1 % (0-10); EOSINOPHILS # (AUTO) 0.2 10^3/uL (0.0-0.3); EOSINOPHILS % (AUTO) 4 % (0-10); HEMATOCRIT 44 % (35-52); LYMPHOCYTES # (AUTO) 1.1 10^3/uL (1.0-4.0); LYMPHOCYTES % (AUTO) 23 % (12-44); MEAN CORPUSCULAR HEMOGLOBIN 31 pg (25-34); MEAN CORPUSCULAR HGB CONC 32 g/dL (32-36); MEAN CORPUSCULAR VOLUME 97 fL (80-99); MEAN PLATELET VOLUME 10.3 fL (9.0-12.2); MONOCYTES # (AUTO) 0.5 10^3/uL (0.0-1.0); MONOCYTES % (AUTO) 11 % (0-12); NEUTROPHILS # (AUTO) 2.9 10^3/uL (1.8-7.8); NEUTROPHILS % (AUTO) 61 % (42-75); PLATELET COUNT 262 10^3/uL (130-400); WHITE BLOOD COUNT 4.8 10^3/uL (4.3-11.0)
[2021-10-02 10:06] LABS: ALBUMIN 3.9 GM/DL (3.2-4.5); BILIRUBIN,TOTAL 0.8 MG/DL (0.1-1.0); CALCIUM 9.1 MG/DL (8.5-10.1); CREATININE SERUM 0.79 MG/DL (0.60-1.30); POTASSIUM 4.1 MMOL/L (3.6-5.0); TOTAL PROTEIN 7.1 GM/DL (6.4-8.2)
[2021-10-07] MEDS ORDERED: DOCU-143 PO (11:29)
[2021-10-07] MEDS ORDERED: ACHD5005 PO (11:29)
== END 2021-10-16 | disposition home or self-care (01) ==
LOC: ONC 08:35
PROVIDERS: ATTEND Internal Medicine Hematology & Oncology
DX: C50.911 Malignant neoplasm of unspecified site of right female breast (principal); M19.90 Unspecified osteoarthritis, unspecified site; M41.80 Other forms of scoliosis, site unspecified; Z82.69 Family history of other diseases of the musculoskeletal system and connective tissue
CPT/HCPCS: 80053; 85025; G0463; 99214

== ENCOUNTER 2021-10-07 05:59 | Day surgery (SDC) | payer OTHER ==
[2021-10-07] VITALS (10 sets, daily range): BP systolic 110–158; BP diastolic 68–93
[~2021-10-07] VITALS: Ht 165 cm; Wt 73.2 kg
[2021-10-07] MEDS ORDERED: ceFAZolin INJECTION 1,000 MG VIAL IV ONE (06:45)
[2021-10-07] MEDS ORDERED: METHYLENE BLUE 0.5% (PROVAYBLUE) 50 mg/10 ml vial IV ONE (07:10)
[2021-10-07] MEDS ORDERED: LIDOCAINE/EPI 1%-1:200,000 (XYLOCAINE) 30 ML VIAL ONE (07:10)
[2021-10-07] MEDS ORDERED: 0.9% SODIUM CHLORIDE PF INJ 20 ML VIAL ONE (07:10)
--- NOTE | 2021-10-07 07:13 | Progress Note-Pre Operative ---
Pre-Operative Progress Note H&P Reviewed The H&P was reviewed, patient examined and no changes noted. Date Seen by Provider: Oct 07, 2021 Time Seen by Provider: 07:13 Date H&P Reviewed: Oct 07, 2021 Time H&P Reviewed: 07:13 Pre-Operative Diagnosis: right breast cancer BAKARI AVILEZ DO Oct 07, 2021 07:13
[2021-10-07] MEDS ORDERED: ONDANSETRON 4 MG/2 ML (SDV) Z0FRAN ONE (07:36)
[2021-10-07] MEDS ORDERED: fentaNYL INJ 100 MCG/2 ML AMP ONE (07:36)
[2021-10-07] MEDS ORDERED: LIDOCAINE PF 2% 5 ML (XYLOCAINE) VIAL ONE (07:36)
[2021-10-07] MEDS ORDERED: proPOfol 200 MG/20 ML (DIPRIVAN) VIAL IV ONE (07:36)
[2021-10-07] MEDS ORDERED: MIDAZOLAM 2 MG/2 ML (VERSED) VIAL ONE (07:37)
[2021-10-07] MEDS ORDERED: LIDOCAINE 1% INJ 20 ML 20 ML VIAL INJ ONE (08:45)
--- NOTE | 2021-10-07 08:54 | Diagnostic Imaging Report ---
Indication: Right breast carcinoma. Total of 1.1 mCi technetium 99m sulfur colloid was injected in 4 separate aliquots in the right periareolar distribution. Imaging was then performed. Imaging does show some migration of activity into the right axilla suggestive of a sentinel node. This was marked on the patient's right skin. IMPRESSION: Right breast lymphoscintigraphy for identification of sentinel node, as described. Dictated by: Dictated on workstation # [id number]
[2021-10-07] MEDS: LACTATED RINGERS 1,000 ML IV PRN ×2 (09:37→10:31)
--- NOTE | 2021-10-07 09:49 | Diagnostic Imaging Report ---
Indication: Right breast carcinoma. Patient presents for ultrasound guided hookwire placement. Patient was brought to the sonographic suite placed on table in supine position. Ultrasound imaging of the right breast was performed to evaluated appropriate entry site. Right breast was prepped and draped usual sterile fashion. Localizing needle was advanced through the hypoechoic mass at 11:00 location of the right breast, 4-6 cm from the nipple. Hookwire was then deployed. Needle was withdrawn. A wire was affixed to the patient's skin. Patient tolerated the procedure well and was sent for post procedure mammogram in satisfactory condition. IMPRESSION: Successful ultrasound guided hookwire placement through the lesion at 11:00 location right breast, 4-6 cm from the nipple. Dictated by: Dictated on workstation # [id number]
[2021-10-07] MEDS ORDERED: HYDROmorphone 2 MG/ML VIAL (DILAUDID) ONE (10:53)
--- NOTE | 2021-10-07 11:16 | Diagnostic Imaging Report ---
INDICATION: Right breast cancer. Patient is status post Hookwire localization with lumpectomy. FINDINGS: The specimen radiograph does demonstrate the Hookwire as well as two separate biopsy marker clips. IMPRESSION: The specimen does contain the Hookwire as well as two biopsy clips. Dictated by: Dictated on workstation # [id number]
--- NOTE | 2021-10-07 11:17 | Diagnostic Imaging Report ---
INDICATION: Right breast carcinoma. Patient is status post ultrasound guided Hookwire localization. FINDINGS: Unilateral right 2D CC and ML mammography was performed. There is a Hookwire adjacent to the marker clips in the upper and outer aspect of the right breast. IMPRESSION: Hookwire placement in the upper outer right breast, as described. Dictated by: Dictated on workstation # [id number]
[2021-10-07] MEDS ORDERED: SEVOFLURANE (ULTANE) 15 ML INHAL SOLN ONE (11:28)
[2021-10-07] MEDS ORDERED: DOCU-143 PO (11:29)
[2021-10-07] MEDS ORDERED: ACHD5005 PO (11:29)
[2021-10-07] MEDS ORDERED: ONDANSETRON 4 MG/2 ML (SDV) Z0FRAN IVP PRN (11:30)
[2021-10-07] MEDS ORDERED: HYDROmorphone 2 MG/ML VIAL (DILAUDID) IV ONE (11:30)
[2021-10-07] MEDS ORDERED: morphine INJ 10 MG/ML 1ML (SYR OR VIAL) IVP ONE (11:30)
--- NOTE | 2021-10-07 11:30 | Discharge Inst-Simple/Standard ---
Discharge Inst-Standard Discharge Medications New, Converted or Re-Newed RX: Transmitted to Pharmacy Patient Instructions/Follow Up Plan of Care/Instructions/FU: 2 weeks [place] Activity as Tolerated: No Discharge Diet: Regular Diet Other Inst to Patient Follow up Appt: Make appointment for 2 week. Instructions: No lifting greater than 10 pounds. No strenuous activity. May shower in 24 hours, no tub bath or soaking. Use incentive spirometer at home as directed. No Smoking Skin/Wound Care: You have special glue over your incision that will fall off on it's own. Can change outer bandage daily if you wish. Keep area supported, using sports bra. Symptoms to Report: Appetite Changes, Extremity Discoloration, Numbness/Tingling, Swelling Increased, Bleeding Excessive, Eyesight Changes, Pain Increased, Urine Color Change, Constipation(Persistent), Fever over 101 degree F, Pain/Pressure in chest, Urinating Difficulty, Cough Up/Vomit Blood, Heart Beat Irreg/Pounding, Pain/Pressure in jaw, Vaginal Bleeding Increase, Cramps in feet or legs, Lightheadedness, Pain/Pressure in shoulder, Diarrhea(Persistent), Memory Changes Suddenly, Questions/Concerns, Weight gain consecutive days, Dizziness/Fainting, Nausea/Vomiting, Shortness of Breath, Weight gain over 2 pounds If questions or concerns contact your physician Or seek help at emergency department. BAKARI AVILEZ DO Oct 07, 2021 11:30
[2021-10-07] MEDS ORDERED: HYDROcodone/APAP 5 MG/325 MG (LORTAB) TAB PO ONE (12:30)
[2021-10-07] MEDS ORDERED: ONDANSETRON 4 MG/2 ML (SDV) Z0FRAN IVP ONE (12:30)
--- NOTE | 2021-10-08 19:33 | OPERATIVE REPORT ---
DATE OF SERVICE: 10/07/2021 PREOPERATIVE DIAGNOSIS: Right breast cancer. POSTOPERATIVE DIAGNOSIS: Right breast cancer. PROCEDURE: Right wire localized lumpectomy with sentinel node biopsy. SURGEON: Bakari Spear DO ANESTHESIA: General. ESTIMATED BLOOD LOSS: Minimal. COMPLICATIONS: None. INDICATIONS: The patient is a 61-year-old female who was diagnosed with breast cancer. She understands risks and benefits of procedure and wishes to proceed. Consent was signed in the chart. DESCRIPTION OF PROCEDURE: The patient was taken to the operating suite. She was prepped and draped in sterile fashion. Surgical pause was performed. Wire had been placed previously. She was prepped and draped in sterile fashion. Timeout was performed. An incision was made on the right upper outer quadrant of the breast. The wire was incorporated through the incision. Cautery was used to dissect around the wire circumferentially until the wire was removed in its entirety to obtain specimen. The specimen was tagged short suture superior, long suture lateral and 2 long sutures deep margin. The wound was then irrigated with sterile water. Hemostasis was achieved. Instruments were then changed. Using Thong counter, the sentinel node isolated and dissection was taken down to it. Using both cautery and blunt dissection, once encountered, the node was able to be grasped and elevated with the [place] counter demonstrating a count of 697. Cautery was used to remove the node. No other nodes within greater than 10% and no other palpable nodes. A 10-second count of the node was 4941. The wound again was then irrigated with copious amounts of sterile water. Hemostasis was achieved. Subcutaneous tissues were then reapproximated using 3-0 Vicryl. Skin was then closed using 4-0 Monocryl in a running subcuticular fashion. Prior to the incision, local anesthetic was infiltrated. Once the area was washed and dried, skin Affix was placed over the incision, sterile bandage was applied. The patient tolerated procedure well without any complications. She was taken to recovery room in stable condition. CC: Carmina Quinonez NP - requested, unable to deliver. Job ID: [id number] DocumentID: [id number] Dictated Date: 10/08/2021 13:49:39 Manufacturing Finance Manager Date: 10/08/2021 19:32:05 Dictated By: BAKARI SPEAR DO
--- NOTE | 2021-10-19 07:46 | Anesthesia-General Post-Op ---
General Patient Condition Mental Status/LOC: Same as Preop Cardiovascular: Satisfactory Nausea/Vomiting: Absent Respiratory: Satisfactory Pain: Controlled Complications: Absent Post Op Complications Complications None Follow Up Care/Instructions Patient Instructions None needed. Anesthesia/Patient Condition Patient Condition Post-dated progress note: Patient was seen on 10-07-21 at approximately 1230 and she was doing well, no complaints, stable vital signs, no apparent adverse anesthesia problems. DIPAK LAW DO Oct 19, 2021 07:46
== END 2021-10-07 14:17 ==
LOC: CARD 05:59
PROVIDERS: ATTEND Surgery
DX: C50.911 Malignant neoplasm of unspecified site of right female breast (principal); Z79.899 Other long term (current) drug therapy; Z79.891 Long term (current) use of opiate analgesic; Z82.49 Family history of ischemic heart disease and other diseases of the circulatory system
CPT/HCPCS: 19285; 19301; 38525; 76098; 77065; 78195; 87081; A4648; A9541; G0279

== ENCOUNTER 2021-11-12 10:57 | Outpatient (RCR) | payer MEDICAID ==
[~2021-11-12 10:57] MED LIST changes: +DOCU-143 PO
== END 2021-11-16 | disposition home or self-care (01) ==
LOC: ONC 10:57
PROVIDERS: ATTEND Internal Medicine Hematology & Oncology
DX: Z51.0 Encounter for antineoplastic radiation therapy (principal); C50.811 Malignant neoplasm of overlapping sites of right female breast; M19.90 Unspecified osteoarthritis, unspecified site; M41.80 Other forms of scoliosis, site unspecified; Z82.69 Family history of other diseases of the musculoskeletal system and connective tissue
CPT/HCPCS: 77290; 77334; 99204

== ENCOUNTER → 2021-12-14 | Outpatient (RCR) | payer MEDICAID | END | disposition home or self-care (01) | LOC: ONC 11-17 09:45 | PROVIDERS: ATTEND Internal Medicine Hematology & Oncology | DX: Z51.0 Encounter for antineoplastic radiation therapy (principal); C50.811 Malignant neoplasm of overlapping sites of right female breast; M19.90 Unspecified osteoarthritis, unspecified site; M41.80 Other forms of scoliosis, site unspecified; Z82.69 Family history of other diseases of the musculoskeletal system and connective tissue; Z90.11 Acquired absence of right breast and nipple | CPT/HCPCS: 77280; 77295; 77300; 77307; 77334; 77336; 77417 ==

== ENCOUNTER 2021-12-23 14:51 | Outpatient (RCR) | payer MEDICAID | END 2022-01-14 | disposition home or self-care (01) | LOC: ONC 14:51 | PROVIDERS: ATTEND Internal Medicine Hematology & Oncology | DX: Z51.0 Encounter for antineoplastic radiation therapy (principal); C50.811 Malignant neoplasm of overlapping sites of right female breast; M19.90 Unspecified osteoarthritis, unspecified site; M41.80 Other forms of scoliosis, site unspecified; Z90.11 Acquired absence of right breast and nipple | CPT/HCPCS: 77280; 77336; 99213 ==

== ENCOUNTER 2022-01-28 11:23 | Outpatient (RCR) | payer MEDICAID ==
[2022-01-20 14:38] LABS: BASOPHILS % (AUTO) 0 % (0-10); EOSINOPHILS % (AUTO) 0 % (0-10); HEMATOCRIT 44 % (35-52); HEMOGLOBIN 14.2 g/dL (11.5-16.0); LYMPHOCYTES # (AUTO) 0.5 10^3/uL (1.0-4.0); LYMPHOCYTES % (AUTO) 9 % (12-44); MEAN CORPUSCULAR HEMOGLOBIN 31 pg (25-34); MEAN CORPUSCULAR HGB CONC 32 g/dL (32-36); MEAN CORPUSCULAR VOLUME 97 fL (80-99); MEAN PLATELET VOLUME 9.8 fL (9.0-12.2); MONOCYTES # (AUTO) 0.1 10^3/uL (0.0-1.0); MONOCYTES % (AUTO) 2 % (0-12); NEUTROPHILS # (AUTO) 4.6 10^3/uL (1.8-7.8); NEUTROPHILS % (AUTO) 88 % (42-75); PLATELET COUNT 241 10^3/uL (130-400); WHITE BLOOD COUNT 5.2 10^3/uL (4.3-11.0)
[2022-01-20 14:56] LABS: BILIRUBIN,TOTAL 0.4 MG/DL (0.1-1.0); CALCIUM 8.9 MG/DL (8.5-10.1); CREATININE SERUM 0.83 MG/DL (0.60-1.30); POTASSIUM 4.5 MMOL/L (3.6-5.0)
== END 2022-02-13 | disposition home or self-care (01) ==
LOC: ONC 11:23
PROVIDERS: ATTEND Internal Medicine Hematology & Oncology
DX: C50.811 Malignant neoplasm of overlapping sites of right female breast (principal); M19.90 Unspecified osteoarthritis, unspecified site; M41.80 Other forms of scoliosis, site unspecified; Z90.11 Acquired absence of right breast and nipple
CPT/HCPCS: 36415; 80053; 85025; 99213

== ENCOUNTER → 2022-06-09 | Outpatient (CLI) | payer MEDICAID ==
[~2022-06-09] VITALS: Ht 167.6 cm; Wt 75.8 kg
[~2022-06-09] MED LIST changes: +ANAS1TAB50 PO; +TRAZ-227 PO
== END ==
LOC: PREOP 05:35
PROVIDERS: ATTEND Surgery
DX: Z01.818 Encounter for other preprocedural examination (principal); K62.5 Hemorrhage of anus and rectum

== ENCOUNTER 2022-06-22 10:09 | Day surgery (SDC) | payer MEDICAID ==
[~2022-06-22] VITALS: Ht 167 cm; Wt 75.8 kg
[2022-06-22] MEDS ORDERED: LACTATED RINGERS 1,000 ML IV STA (10:18)
[2022-06-22 10:31] VITALS: BP 180/95
[2022-06-22] MEDS ORDERED: PROPOFOL INJECTION 50 ML IV ONE (11:17)
[2022-06-22 11:51] VITALS: BP 110/55
--- NOTE | 2022-06-22 11:51 | Progress Note-Post Operative ---
Post-Operative Progess Note Surgeon (s)/Finger Buff Sewer (s) Surgeon BAKARI AVILEZ DO Finger Buff Sewer: na Pre-Operative Diagnosis blood per rectum Post-Operative Diagnosis sigmoid polyp, internal hemorrhoids Procedure & Operative Findings Date of Procedure 06/22/22 Procedure Performed/Findings colonoscopy c hot bx polypectomy x 1 Anesthesia Type per core extruder Estimated Blood Loss Estimated blood loss (mL): none Specimens/Packing Specimens Removed sigmoid polyp BAKARI AVILEZ DO Jun 22, 2022 11:51
--- NOTE | 2022-06-22 11:52 | Discharge Inst-Simple/Standard ---
Discharge Inst-Standard Discharge Medications New, Converted or Re-Newed RX: RX on Chart Patient Instructions/Follow Up Plan of Care/Instructions/FU: 2 weeks [place] Activity as Tolerated: Yes Discharge Diet: Regular Diet BAKARI AVILEZ DO Jun 22, 2022 11:52
[2022-06-22 11:55] VITALS: BP 130/62
[2022-06-22 12:20] VITALS: BP 130/62
--- NOTE | 2022-06-22 12:45 | Anesthesia-General Post-Op ---
MAC Patient Condition Mental Status/LOC: Same as Preop Cardiovascular: Satisfactory Nausea/Vomiting: Absent Respiratory: Satisfactory Pain: Controlled Complications: Absent Post Op Complications Complications None Follow Up Care/Instructions Patient Instructions None needed. Anesthesiology Discharge Order Discharge Order Patient is doing well, no complaints, stable vital signs, no apparent adverse anesthesia problems. No complications reported per nursing. WALDO LÓPEZ CRNA Jun 22, 2022 12:44
--- NOTE | 2022-06-22 14:52 | OPERATIVE REPORT ---
DATE OF SERVICE: 06/22/2022 PREOPERATIVE DIAGNOSIS: Blood per rectum. POSTOPERATIVE DIAGNOSES: Sigmoid colon polyp and internal hemorrhoids. PROCEDURES PERFORMED: Colonoscopy with hot biopsy polypectomy x1. SURGEON: Bakari Spear DO. ANESTHESIA: Per CHEF ASSISTANT. ESTIMATED BLOOD LOSS: None. COMPLICATIONS: None. INDICATIONS FOR PROCEDURE: The patient is a 62-year-old female with blood per rectum. She understands the risks and benefits of procedure and wishes to proceed. Consent was signed in the chart. DESCRIPTION OF PROCEDURE: The patient was taken to the endoscopy suite and placed in the left lateral recumbent position. A timeout was performed. Digital rectal exam was performed noting internal hemorrhoids. No palpable polyps, masses or ulcerations. Scope was inserted in the rectum and advanced all the way to the cecum with minimal difficulty. Prep was adequate with irrigation and suction. Scope was slowly retracted back. No polyps, masses or ulcerations in the cecum, ascending, transverse, descending colon. In the sigmoid colon, a small polyp was present, which hot biopsy polypectomy was performed. Scope was then continuously and slowly retracted back into the rectum, where it was also retroflexed noting internal hemorrhoids. No other pathology. Scope was returned to its normal position, slowly withdrawn until completely removed. The patient tolerated the procedure well without any complications. She was taken to the recovery room in stable condition. RECOMMENDATIONS: The patient will need repeat colonoscopy in 5 years. Any issues before that be seen at that time. We would also consider hemorrhoidectomy. The patient will follow up in two weeks to discuss results. Any issues before that be seen at that time. Job ID: [id number] DocumentID: [id number] Dictated Date: 06/22/2022 11:53:57 Log Buyer Date: 06/22/2022 14:51:28 Dictated By: BAKARI SPEAR DO
== END 2022-06-22 12:20 | disposition home or self-care (01) ==
LOC: ENDO 10:09
PROVIDERS: ATTEND Surgery
DX: D12.5 Benign neoplasm of sigmoid colon (principal); K64.8 Other hemorrhoids; Z86.16 Personal history of COVID-19; Z28.310 Unvaccinated for COVID-19
CPT/HCPCS: 88305

== ENCOUNTER → 2022-07-28 | Outpatient (CLI) | payer MEDICAID ==
--- NOTE | 2022-07-28 11:18 | Diagnostic Imaging Report ---
INDICATION: Routine screening. COMPARISON: 08/19/2021 and 09/26/2018. TECHNIQUE: 2D and 3D bilateral screening mammography was performed with CAD. FINDINGS: Both breasts are heterogeneously dense, limiting the sensitivity of mammography. Post lumpectomy changes in the right breast are again noted. No mass or malignant-appearing microcalcifications are seen. The axillae are unremarkable. IMPRESSION: No mammographic features suspicious for malignancy are identified. ACR BI-RADS Category 2: Benign findings. Result letter will be mailed to the patient. Note: At least 10% of breast cancer is not imaged by mammography. Dictated by: Dictated on workstation # [id number]
== END ==
LOC: RAD 10:15
PROVIDERS: ATTEND Internal Medicine Hematology & Oncology
DX: Z12.31 Encounter for screening mammogram for malignant neoplasm of breast (principal)
CPT/HCPCS: 77063; 77067

== ENCOUNTER 2022-08-04 14:24 | Outpatient (RCR) | payer MEDICAID | END 2022-08-16 | disposition home or self-care (01) | LOC: ONC 14:24 | PROVIDERS: ATTEND Internal Medicine Hematology & Oncology | DX: C50.912 Malignant neoplasm of unspecified site of left female breast (principal); M19.90 Unspecified osteoarthritis, unspecified site; M41.80 Other forms of scoliosis, site unspecified; Z90.11 Acquired absence of right breast and nipple; Z76.89 Persons encountering health services in other specified circumstances | CPT/HCPCS: 99213 ==

== ENCOUNTER 2023-02-02 13:59 | Outpatient (RCR) | payer MEDICAID ==
[2023-02-02 14:24] LABS: BASOPHILS % (AUTO) 1 % (0-10); EOSINOPHILS # (AUTO) 0.2 10^3/uL (0.0-0.3); EOSINOPHILS % (AUTO) 4 % (0-10); HEMATOCRIT 41 % (35-52); HEMOGLOBIN 13.4 g/dL (11.5-16.0); LYMPHOCYTES # (AUTO) 0.9 10^3/uL (1.0-4.0); LYMPHOCYTES % (AUTO) 23 % (12-44); MEAN CORPUSCULAR HEMOGLOBIN 31 pg (25-34); MEAN CORPUSCULAR HGB CONC 32 g/dL (32-36); MEAN CORPUSCULAR VOLUME 96 fL (80-99); MEAN PLATELET VOLUME 10.3 fL (9.0-12.2); MONOCYTES # (AUTO) 0.4 10^3/uL (0.0-1.0); MONOCYTES % (AUTO) 11 % (0-12); NEUTROPHILS # (AUTO) 2.4 10^3/uL (1.8-7.8); NEUTROPHILS % (AUTO) 61 % (42-75); PLATELET COUNT 224 10^3/uL (130-400)
[2023-02-02 14:44] LABS: ALBUMIN 3.7 GM/DL (3.2-4.5); BILIRUBIN,TOTAL 0.6 MG/DL (0.1-1.0); CALCIUM 8.7 MG/DL (8.5-10.1); CREATININE SERUM 0.85 MG/DL (0.60-1.30); POTASSIUM 3.9 MMOL/L (3.6-5.0); TOTAL PROTEIN 6.8 GM/DL (6.4-8.2)
== END 2023-02-13 | disposition home or self-care (01) ==
LOC: ONC 13:59
PROVIDERS: ATTEND Internal Medicine Hematology & Oncology
DX: D05.11 Intraductal carcinoma in situ of right breast (principal); M19.90 Unspecified osteoarthritis, unspecified site; M41.80 Other forms of scoliosis, site unspecified; Z90.11 Acquired absence of right breast and nipple; Z76.89 Persons encountering health services in other specified circumstances; Z79.811 Long term (current) use of aromatase inhibitors
CPT/HCPCS: 36415; 80053; 85025

== ENCOUNTER 2023-06-10 19:41 | Outpatient (CLI) | payer MEDICAID | END 2023-06-11 03:20 | LOC: SLEEP 19:41 | PROVIDERS: ATTEND Nurse Practitioner Family | DX: G47.33 Obstructive sleep apnea (adult) (pediatric) (principal); I10 Essential (primary) hypertension; R06.83 Snoring | CPT/HCPCS: 95810 ==

== ENCOUNTER → 2023-06-21 | Outpatient (CLI) | payer MEDICAID ==
--- NOTE | 2023-06-21 11:13 | Diagnostic Imaging Report ---
INDICATION: Postmenopausal state, right breast cancer COMPARISON: None available FINDINGS: AP Spine L1-L4: [BMD (g/cm2): 0.835] [T-Score: -3.0] [Z-Score: -1.9] [BMD Previous: na] [BMD % Change: na] LT Hip Neck: [BMD (g/cm2): 0.935] [T-Score: -0.7] [Z-Score: 0.5] LT Hip Total: [BMD (g/cm2):0.919] [T-Score:-0.7] [Z-Score: 0.2] [BMD Previous: na] [BMD % Change: na] RT Hip Neck: [BMD (g/cm2):0.860] [T-Score:-1.3] [Z-Score:-0.1] RT Hip Total: [BMD (g/cm2):0.872] [T-score:-1.1] [Z-Score:-0.2] [BMD Previous:na] [BMD % Change:na] *Indicates significant change from prior examination based on 95% confidence level. World Health Organization criteria for BMD interpretation classify patients as Normal (T-score at or above -1.0), Osteopenic (T-score between -1.0 and -2.5) or Osteoporotic (T-score at or below -2.5). LIMITATIONS AND MODIFICATION: None. IMPRESSION: 1. Osteoporosis. 2. Baseline examination. 3. See below National Osteoporosis Foundation guidelines on when to potentially initiate pharmacologic therapy. Based on the National Osteoporosis Foundation Guidelines, pharmacologic treatment should be initiated in any of the following, unless clinical conditions suggest otherwise: * Any patient with prior fragility fracture of the hip or vertebrae. A spine fracture indicates 5X risk for subsequent spine fracture and 2X risk for subsequent hip fracture. * Osteoporosis (T-score <-2.5). * Postmenopausal women and men age 50 and older with low bone mass/osteopenia (T-score between -1.0 and -2.5) by DXA and 10-year major osteoporotic fracture greater than 20% or a 10-year probability of hip fracture greater than 3%. These fracture risks are supplied above in the FRAX score, if applicable. * Clinician judgement and/or patient preferences may indicate treatment for people with 10-year fracture probabilities above or below these levels. Dictated by: Dictated on workstation # [id number]
== END ==
LOC: RAD 08:30
PROVIDERS: ATTEND Internal Medicine Hematology & Oncology
DX: M81.0 Age-related osteoporosis without current pathological fracture (principal); C50.111 Malignant neoplasm of central portion of right female breast
CPT/HCPCS: 77080

== ENCOUNTER → 2023-07-29 | Outpatient (CLI) | payer MEDICAID ==
--- NOTE | 2023-07-29 10:30 | Diagnostic Imaging Report ---
3-D bilateral screening mammogram with CAD. The current study was also evaluated with a Computer Aided Detection (CAD) system. This study was compared to the prior exams of 07/28/2022, 10/07/2021 and 08/19/2021. At this time there are no current complaints. The fibroglandular tissue in both breasts is heterogeneously dense. This does limit the sensitivity of this exam. The post lumpectomy changes involving the right breast seen previously are again evident and no different. There is no sign of recurrent malignancy. On the craniocaudad view of the left breast in the far lateral aspect of the breast there is a 4 mm oval asymmetry. There is no corresponding abnormality seen on the MLO view but this finding does seem to persist on the tomographic images. I would recommend that a compression view of this area be obtained in the CC projection as well as a true lateral view for further study. Ultrasound should also be performed. IMPRESSION: Additional mammographic views and ultrasound of the left breast recommended for further evaluation. ACR BI-RADS Category 0: Incomplete. (Needs additional imaging evaluation). Result letter will be mailed to the patient. Note: At least 10% of breast cancer is not imaged by mammography. Dictated by: Dictated on workstation # [id number]
== END ==
LOC: RAD 09:00
PROVIDERS: ATTEND Internal Medicine Hematology & Oncology
DX: Z12.31 Encounter for screening mammogram for malignant neoplasm of breast (principal); C50.111 Malignant neoplasm of central portion of right female breast
CPT/HCPCS: 77063; 77067

== ENCOUNTER 2023-08-03 14:00 | Outpatient (RCR) | payer MEDICAID ==
[2023-08-03 14:17] LABS: BASOPHILS % (AUTO) 1 % (0-10); EOSINOPHILS # (AUTO) 0.1 10^3/uL (0.0-0.3); EOSINOPHILS % (AUTO) 2 % (0-10); HEMATOCRIT 42 % (35-52); HEMOGLOBIN 13.3 g/dL (11.5-16.0); LYMPHOCYTES # (AUTO) 0.9 X 10^3 (1.0-4.0); LYMPHOCYTES % (AUTO) 22 % (12-44); MEAN CORPUSCULAR HEMOGLOBIN 31 pg (25-34); MEAN CORPUSCULAR HGB CONC 32 g/dL (32-36); MEAN CORPUSCULAR VOLUME 97 fL (80-99); MEAN PLATELET VOLUME 9.9 fL (9.0-12.2); MONOCYTES # (AUTO) 0.5 X 10^3 (0.0-1.0); MONOCYTES % (AUTO) 11 % (0-12); NEUTROPHILS # (AUTO) 2.7 X 10^3 (1.8-7.8); NEUTROPHILS % (AUTO) 64 % (42-75); PLATELET COUNT 270 10^3/uL (130-400); WHITE BLOOD COUNT 4.3 10^3/uL (4.3-11.0)
[2023-08-03 14:35] LABS: ALBUMIN 3.9 GM/DL (3.2-4.5); BILIRUBIN,TOTAL 0.5 MG/DL (0.1-1.0); CALCIUM 8.9 MG/DL (8.5-10.1); CREATININE SERUM 0.86 MG/DL (0.60-1.30); POTASSIUM 4.3 MMOL/L (3.6-5.0); TOTAL PROTEIN 6.8 GM/DL (6.4-8.2)
== END 2023-08-16 | disposition home or self-care (01) ==
LOC: ONC 14:00
PROVIDERS: ATTEND Internal Medicine Hematology & Oncology
DX: D05.11 Intraductal carcinoma in situ of right breast (principal); J32.9 Chronic sinusitis, unspecified; M41.9 Scoliosis, unspecified
CPT/HCPCS: 36415; 80053; 85025

== ENCOUNTER → 2023-08-10 | Outpatient (CLI) | payer MEDICAID ==
--- NOTE | 2023-08-10 13:16 | Diagnostic Imaging Report ---
INDICATION: Left breast density. Patient presents for additional views. COMPARISON: Screening study from 07/29/2023. TECHNIQUE: Unilateral left 2D and 3D diagnostic mammography was performed. This includes spot compression CC as well as conventional 90 degree lateral view. FINDINGS: Additional views fail to demonstrate a discrete mass. There is some questionable minimal residual nodularity in the outer left breast 8 cm from the nipple. No corresponding density on the lateral view is identified. Even so, ultrasound of this area would be recommended. No suspicious calcifications are identified. IMPRESSION: No discrete mass is identified with additional views. Even so, directed sonographic interrogation of the outer left breast 8 cm from the nipple is recommended and will be performed today. ACR BI-RADS Category 0: Incomplete. (Needs additional imaging evaluation). Result letter will be mailed to the patient. Note: At least 10% of breast cancer is not imaged by mammography. Dictated by: Dictated on workstation # [id number]
--- NOTE | 2023-08-10 14:41 | Diagnostic Imaging Report ---
Indication: Left breast density. Study performed for further evaluation. Correlation is made with prior screening mammogram from 07/29/2023 and diagnostic mammogram from 08/10/2023. Sonographic interrogation outer left breast was performed.. There is a 3 mm hypoechoic nodule 1:00 location left breast approximately 8 cm from the nipple. This is fairly well-circumscribed. No internal vascularity is seen. No posterior acoustic shadowing is identified. IMPRESSION: BI-RADS Category 3 Circumscribed hypoechoic nodule 1:00 location left breast 8 cm from the nipple. This may account the mammographic density. This has fairly benign features. Even so, follow-up left mammogram and left breast ultrasound in 6 months is recommended to show continued stability. ACR BI-RADS Category 3: Probably benign findings. Dictated by: Dictated on workstation # [id number]
== END ==
LOC: RAD 12:45
PROVIDERS: ATTEND Internal Medicine Hematology & Oncology
DX: N63.21 Unspecified lump in the left breast, upper outer quadrant (principal)